=== PATIENT | male | born 1960 | race Caucasian/White ===

== ENCOUNTER 2019-09-17 15:55 | Inpatient (IN) ==
[2019-09-17 16:40] LABS: Basophils # 0.1 K/mcL (0.0-0.2); Basophils % 1.3 %; Eosinophils # 0.3 K/mcL (0.0-0.6); Eosinophils % 4.9 %; Hematocrit 34.9 % (37.5-50.1); Hemoglobin 10.9 g/dL (12.9-16.9); Immature Granulocytes % 0.5 % (0-4); Lymphocytes # 0.6 K/mcL (0.6-4.6); Mean Corpuscular HGB Conc 31.2 g/dL (31.6-35.5); Mean Corpuscular Volume 99.1 fL (83.0-100.0); Mean Platelet Volume 9.2 fL (9.4-12.4); Monocytes # 0.6 K/mcL (0.0-1.3); Neutrophils # 4.7 K/mcL (1.6-8.9); Platelet Count 268 K/mcL (140-400); Red Blood Count 3.52 M/mcL (4.19-5.50); Red Cell Distribution Width 23.6 % (11.5-14.5); Segmented Neutrophils % 74.3 %; White Blood Count 6.3 K/mcL (4.3-11.1)
[2019-09-17 16:49] LABS: Prothrombin Time 22.7 Seconds (9.4-12.1)
[2019-09-17 16:59] LABS: Potassium 3.8 mEq/L (3.5-5.1)
[2019-09-17 17:16] LABS: Anisocytosis 3+ (Not Present)
[2019-09-17 17:17] LABS: Platelet Estimate Normal (Normal)
[2019-09-17] MEDS ORDERED: Naloxone 0.4 MG/ML INJ IVP PRN (17:46)
[2019-09-17] MEDS ORDERED: Ondansetron 4 MG/2 ML VIAL IVP PRN (17:46)
[2019-09-17] MEDS ORDERED: *HR* Dextrose 50 % in Water (Syg) 50 ML SYRINGE IVP PRN (17:58)
[2019-09-17] MEDS ORDERED: D5% in Water 1,000 ML IVC PRN ×2 (17:58→17:59)
[2019-09-17] MEDS ORDERED: Dextrose Gel 15 GM/37.5 ML TUBE PO PRN ×2 (17:58)
[2019-09-17] MEDS: 0.9 % Sodium Chloride 1,000 ML IVC SCH (18:51)
[2019-09-17] MEDS: Insulin LISPRO 300 UNITS/3 ML VIAL SQ SCH (18:51)
[2019-09-17] MEDS ORDERED: Ipratropium/Albuterol Neb 3 ML IH PRN (19:44)
[2019-09-17] MEDS: *HR* Heparin 5,000 UNIT/ML VIAL SQ SCH (21:05)
[2019-09-17] MEDS: Doxycycline 100 MG CAPSULE PO SCH (21:06)
[2019-09-18 05:07] LABS: Basophils # 0.1 K/mcL (0.0-0.2); Basophils % 1.1 %; Eosinophils # 0.4 K/mcL (0.0-0.6); Eosinophils % 5.5 %; Hematocrit 35.4 % (37.5-50.1); Hemoglobin 10.4 g/dL (12.9-16.9); Immature Granulocytes % 0.6 % (0-4); Lymphocytes # 0.6 K/mcL (0.6-4.6); Mean Corpuscular HGB Conc 29.4 g/dL (31.6-35.5); Mean Corpuscular Hemoglobin 30.6 pg (28.0-33.3); Mean Corpuscular Volume 104.1 fL (83.0-100.0); Mean Platelet Volume 9.3 fL (9.4-12.4); Monocytes # 0.6 K/mcL (0.0-1.3); Monocytes % 8.5 %; Neutrophils # 5.3 K/mcL (1.6-8.9); Platelet Count 249 K/mcL (140-400); Red Cell Distribution Width 23.8 % (11.5-14.5); Segmented Neutrophils % 76.3 %
[2019-09-18 05:10] LABS: INR 1.7; Prothrombin Time 19.4 Seconds (9.4-12.1)
[2019-09-18 05:23] LABS: Calcium 8.8 mg/dL (8.6-10.3); Potassium 4.3 mEq/L (3.5-5.1)
[2019-09-18 05:30] LABS: Anisocytosis 1+ (Not Present)
[2019-09-18 05:31] LABS: Platelet Estimate Normal (Normal); Polychromasia 1+ (Not Present)
[2019-09-18] MEDS: *HR* Heparin 5,000 UNIT/ML VIAL SQ SCH ×3 (06:05→23:04)
[2019-09-18] MEDS: Insulin LISPRO 300 UNITS/3 ML VIAL SQ SCH ×3 (07:26→16:53)
[2019-09-18] MEDS ORDERED: Isosorbide MONOnitrate (24 HR) 30 MG TAB.ER.24H PO SCH (09:00)
[2019-09-18] MEDS ORDERED: Aspirin 81 MG TAB.CHEW PO SCH (09:00)
[2019-09-18] MEDS ORDERED: Gabapentin 300 MG CAPSULE PO SCH (09:00)
[2019-09-18] MEDS: Doxycycline 100 MG CAPSULE PO SCH ×2 (09:13→23:05)
[2019-09-18 20:16] LABS: Hepatitis B Surface Antibody 56.36 mIU/mL
[2019-09-18 20:27] LABS: Hepatitis B Surface Antigen Nonreactive (Nonreactive)
[2019-09-18] MEDS ORDERED: Lidocaine 1% 20 ML MDV ONE (20:36)
[2019-09-18] MEDS ORDERED: Lidocaine -MPF 2% 2 ML VIAL ONE (21:00)
[2019-09-18] MEDS ORDERED: Propofol 500 MG/50 ML INFUS..BTL ONE (21:00)
[2019-09-18] MEDS ORDERED: *HR* Propofol 200 MG/20 ML VIAL IVP ONE (21:34)
[2019-09-18] MEDS ORDERED: *HR* PHENYLEPHRINE 1,000 MCG/10 ML SYRINGE IVP ONE (21:51)
[2019-09-18] MEDS: 0.9 % Sodium Chloride 1,000 ML IVC SCH (23:05)
[2019-09-19 02:16] LABS: Basophils # 0.1 K/mcL (0.0-0.2); Basophils % 1.7 %; Eosinophils # 0.4 K/mcL (0.0-0.6); Eosinophils % 7.1 %; Hemoglobin 10.3 g/dL (12.9-16.9); Immature Granulocytes % 0.7 % (0-4); Lymphocytes # 0.4 K/mcL (0.6-4.6); Lymphocytes % 6.3 %; Mean Corpuscular HGB Conc 30.3 g/dL (31.6-35.5); Mean Corpuscular Hemoglobin 31.1 pg (28.0-33.3); Mean Corpuscular Volume 102.7 fL (83.0-100.0); Mean Platelet Volume 9.4 fL (9.4-12.4); Monocytes # 0.4 K/mcL (0.0-1.3); Monocytes % 6.8 %; Neutrophils # 4.7 K/mcL (1.6-8.9); Platelet Count 282 K/mcL (140-400); Red Blood Count 3.31 M/mcL (4.19-5.50); Red Cell Distribution Width 23.9 % (11.5-14.5); Segmented Neutrophils % 77.4 %; White Blood Count 6.1 K/mcL (4.3-11.1)
[2019-09-19 02:18] LABS: INR 1.5
[2019-09-19 02:34] LABS: Calcium 8.1 mg/dL (8.6-10.3); Potassium 4.3 mEq/L (3.5-5.1)
[2019-09-19 02:35] LABS: Hypochromasia Present (Not Present); Platelet Estimate Normal (Normal)
[2019-09-19 02:36] LABS: Anisocytosis 3+ (Not Present); Microcytosis Present (Not Present)
[2019-09-19] MEDS: *HR* Heparin 5,000 UNIT/ML VIAL SQ SCH ×3 (06:30→20:39)
[2019-09-19] MEDS ORDERED: D5% in Water 1,000 ML IVC PRN (07:12)
[2019-09-19] MEDS ORDERED: *HR* Dextrose 50 % in Water (Syg) 50 ML SYRINGE IVP PRN (07:12)
[2019-09-19] MEDS ORDERED: Dextrose Gel 15 GM/37.5 ML TUBE PO PRN ×2 (07:12)
[2019-09-19] MEDS ORDERED: Ondansetron 4 MG/2 ML VIAL IVP PRN (07:12)
[2019-09-19] MEDS ORDERED: Ipratropium/Albuterol Neb 3 ML IH PRN (07:12)
[2019-09-19] MEDS ORDERED: Naloxone 0.4 MG/ML INJ IVP PRN (07:12)
[2019-09-19] MEDS ORDERED: 0.9 % Sodium Chloride 1,000 ML IVC SCH (07:12)
[2019-09-19] MEDS: Insulin LISPRO 300 UNITS/3 ML VIAL SQ SCH ×3 (08:30→17:09)
[2019-09-19] MEDS: Aspirin 81 MG TAB.CHEW PO SCH (08:31)
[2019-09-19] MEDS: Gabapentin 300 MG CAPSULE PO SCH (08:31)
[2019-09-19] MEDS: Isosorbide MONOnitrate (24 HR) 30 MG TAB.ER.24H PO SCH (08:32)
[2019-09-19] MEDS ORDERED: Doxycycline 100 MG CAPSULE PO SCH (09:00)
[2019-09-19] MEDS ORDERED: 0.9 % Sodium Chloride 250 ML IVC PRN (09:24)
[2019-09-19] MEDS ORDERED: 0.9 % Sodium Chloride 1,000 ML PRIME SCH (09:30)
[2019-09-19] MEDS ORDERED: Vancomycin 1 EACH in 0.9 % Sodium Chloride 250 ML IVPB PRN (14:00)
[2019-09-19] MEDS: Piperacillin/Tazobactam 3.375 GM in 0.9 % Sodium Chloride Mini Bag 100 ML IVPB SCH (17:08)
[2019-09-20] MEDS: Piperacillin/Tazobactam 3.375 GM in 0.9 % Sodium Chloride Mini Bag 100 ML IVPB SCH ×2 (06:04→17:36)
[2019-09-20] MEDS: *HR* Heparin 5,000 UNIT/ML VIAL SQ SCH ×3 (06:04→21:22)
[2019-09-20 06:47] LABS: INR 1.4; Prothrombin Time 15.8 Seconds (9.4-12.1)
[2019-09-20] MEDS: Isosorbide MONOnitrate (24 HR) 30 MG TAB.ER.24H PO SCH (07:34)
[2019-09-20] MEDS: Aspirin 81 MG TAB.CHEW PO SCH (07:35)
[2019-09-20] MEDS: Insulin LISPRO 300 UNITS/3 ML VIAL SQ SCH ×3 (07:35→17:37)
[2019-09-20] MEDS: Gabapentin 300 MG CAPSULE PO SCH (07:35)
[2019-09-20] MEDS: Renal Vitamin 1 CAP CAPSULE PO SCH (07:35)
[2019-09-20] MEDS ORDERED: Warfarin perPT PO PRN (18:00)
[2019-09-20] MEDS ORDERED: *HR* Warfarin 5 MG TABLET PO ONE (18:00)
[2019-09-21 05:03] LABS: Hematocrit 33.7 % (37.5-50.1); Hemoglobin 10.1 g/dL (12.9-16.9); Mean Corpuscular Hemoglobin 30.6 pg (28.0-33.3); Mean Corpuscular Volume 102.1 fL (83.0-100.0); Mean Platelet Volume 9.5 fL (9.4-12.4); Platelet Count 253 K/mcL (140-400)
[2019-09-21 05:08] LABS: White Blood Count 9.1 K/mcL (4.3-11.1)
[2019-09-21 05:15] LABS: INR 1.4; Prothrombin Time 15.7 Seconds (9.4-12.1)
[2019-09-21 05:25] LABS: Calcium 8.6 mg/dL (8.6-10.3); Potassium 5.2 mEq/L (3.5-5.1)
[2019-09-21] MEDS: Piperacillin/Tazobactam 3.375 GM in 0.9 % Sodium Chloride Mini Bag 100 ML IVPB SCH ×2 (05:35→16:56)
[2019-09-21] MEDS: *HR* Heparin 5,000 UNIT/ML VIAL SQ SCH ×2 (05:35→13:13)
[2019-09-21] MEDS: Renal Vitamin 1 CAP CAPSULE PO SCH (08:22)
[2019-09-21] MEDS: Isosorbide MONOnitrate (24 HR) 30 MG TAB.ER.24H PO SCH (08:23)
[2019-09-21] MEDS: Aspirin 81 MG TAB.CHEW PO SCH (08:23)
[2019-09-21] MEDS: Gabapentin 300 MG CAPSULE PO SCH (08:23)
[2019-09-21] MEDS: Insulin LISPRO 300 UNITS/3 ML VIAL SQ SCH ×3 (08:43→16:04)
[2019-09-21] MEDS ORDERED: 0.9 % Sodium Chloride 250 ML IVC PRN (08:51)
[2019-09-21] MEDS ORDERED: *HR* Warfarin 5 MG TABLET PO ONE (18:00)
[2019-09-22] MEDS: *HR* Heparin 5,000 UNIT/ML VIAL SQ SCH ×2 (00:32→05:11)
[2019-09-22] MEDS: Piperacillin/Tazobactam 3.375 GM in 0.9 % Sodium Chloride Mini Bag 100 ML IVPB SCH (05:12)
[2019-09-22 05:31] LABS: Hematocrit 31.8 % (37.5-50.1); Hemoglobin 9.3 g/dL (12.9-16.9); Mean Corpuscular HGB Conc 29.2 g/dL (31.6-35.5); Mean Corpuscular Hemoglobin 30.8 pg (28.0-33.3); Mean Corpuscular Volume 105.3 fL (83.0-100.0); Mean Platelet Volume 9.7 fL (9.4-12.4); Platelet Count 245 K/mcL (140-400); Red Blood Count 3.02 M/mcL (4.19-5.50); Red Cell Distribution Width 23.3 % (11.5-14.5); White Blood Count 7.8 K/mcL (4.3-11.1)
[2019-09-22 05:44] LABS: INR 1.4; Prothrombin Time 16.3 Seconds (9.4-12.1)
[2019-09-22 05:47] LABS: Calcium 8.7 mg/dL (8.6-10.3); Potassium 4.4 mEq/L (3.5-5.1)
[2019-09-22] MEDS: Isosorbide MONOnitrate (24 HR) 30 MG TAB.ER.24H PO SCH (08:37)
[2019-09-22] MEDS: Renal Vitamin 1 CAP CAPSULE PO SCH (08:37)
[2019-09-22] MEDS: Insulin LISPRO 300 UNITS/3 ML VIAL SQ SCH ×3 (08:38→16:04)
[2019-09-22] MEDS: Gabapentin 300 MG CAPSULE PO SCH (08:38)
[2019-09-22] MEDS: Aspirin 81 MG TAB.CHEW PO SCH (08:38)
[2019-09-22] MEDS ORDERED: *HR* Heparin 5,000 UNIT/ML VIAL IVP ONE (13:39)
[2019-09-22] MEDS ORDERED: *HR* Heparin 5,000 UNIT/ML VIAL IVP PRN ×2 (13:39)
[2019-09-22 14:45] LABS: Hematocrit 31.2 % (37.5-50.1); Hemoglobin 9.5 g/dL (12.9-16.9); Immature Platelets 2.7 % (1.1-6.1); Mean Corpuscular HGB Conc 30.4 g/dL (31.6-35.5); Mean Corpuscular Hemoglobin 31.3 pg (28.0-33.3); Mean Corpuscular Volume 102.6 fL (83.0-100.0); Mean Platelet Volume 9.6 fL (9.4-12.4); Red Blood Count 3.04 M/mcL (4.19-5.50); Red Cell Distribution Width 23.3 % (11.5-14.5); White Blood Count 8.3 K/mcL (4.3-11.1)
[2019-09-22 14:53] LABS: Heparin anti-factor XA UFH 0.02 IU/mL (0.30-0.70); INR 1.5; Prothrombin Time 17.1 Seconds (9.4-12.1)
[2019-09-22] MEDS: Heparin 25,000 UNIT/250 ML D5W 25,000 UNIT/250 ML IV.SOLN IVC SCH (15:26)
[2019-09-22] MEDS: MetroNIDAZOLE 500 MG/100 ML 500 MG/100 ML BAG IVPB SCH (15:31)
[2019-09-22] MEDS ORDERED: *HR* Warfarin 5 MG TABLET PO ONE (18:00)
[2019-09-23] MEDS: MetroNIDAZOLE 500 MG/100 ML 500 MG/100 ML BAG IVPB SCH ×3 (00:44→15:37)
[2019-09-23 07:22] LABS: Hematocrit 30.3 % (37.5-50.1); Hemoglobin 9.2 g/dL (12.9-16.9); Mean Corpuscular HGB Conc 30.4 g/dL (31.6-35.5); Mean Corpuscular Hemoglobin 30.8 pg (28.0-33.3); Mean Corpuscular Volume 101.3 fL (83.0-100.0); Mean Platelet Volume 9.7 fL (9.4-12.4); Platelet Count 252 K/mcL (140-400); Red Blood Count 2.99 M/mcL (4.19-5.50); Red Cell Distribution Width 22.7 % (11.5-14.5); White Blood Count 7.5 K/mcL (4.3-11.1)
[2019-09-23 07:28] LABS: INR 1.9; Prothrombin Time 21.4 Seconds (9.4-12.1)
[2019-09-23] MEDS ORDERED: Aminoglycoside Consult 1 EACH MC ONE (07:38)
[2019-09-23 07:43] LABS: Calcium 8.6 mg/dL (8.6-10.3); Potassium 4.9 mEq/L (3.5-5.1)
[2019-09-23] MEDS: Isosorbide MONOnitrate (24 HR) 30 MG TAB.ER.24H PO SCH (07:52)
[2019-09-23] MEDS: Aspirin 81 MG TAB.CHEW PO SCH (07:53)
[2019-09-23] MEDS: Renal Vitamin 1 CAP CAPSULE PO SCH (07:53)
[2019-09-23] MEDS: Gabapentin 300 MG CAPSULE PO SCH (07:53)
[2019-09-23] MEDS: Insulin LISPRO 300 UNITS/3 ML VIAL SQ SCH ×3 (07:58→17:07)
[2019-09-23] MEDS ORDERED: DAPTOmycin 500 MG in 0.9 % Sodium Chloride 100 ML IVPB SCH ×2 (12:00→15:00)
[2019-09-23] MEDS: Heparin 25,000 UNIT/250 ML D5W 25,000 UNIT/250 ML IV.SOLN IVC SCH (12:03)
[2019-09-23] MEDS ORDERED: *HR* Warfarin 5 MG TABLET PO ONE (18:00)
[2019-09-23] MEDS ORDERED: Pantoprazole 80 MG in 0.9 % Sodium Chloride 50 ML IVPB ONE (23:28)
[2019-09-24 00:01] LABS: Hematocrit 32.5 % (37.5-50.1); Hemoglobin 10.1 g/dL (12.9-16.9)
[2019-09-24] MEDS: MetroNIDAZOLE 500 MG/100 ML 500 MG/100 ML BAG IVPB SCH ×2 (00:30→08:32)
[2019-09-24 04:23] LABS: Hematocrit 32.4 % (37.5-50.1); Hemoglobin 9.8 g/dL (12.9-16.9); Mean Corpuscular HGB Conc 30.2 g/dL (31.6-35.5); Mean Corpuscular Hemoglobin 30.9 pg (28.0-33.3); Mean Corpuscular Volume 102.2 fL (83.0-100.0); Platelet Count 308 K/mcL (140-400); Red Blood Count 3.17 M/mcL (4.19-5.50); Red Cell Distribution Width 22.5 % (11.5-14.5); White Blood Count 8.7 K/mcL (4.3-11.1)
[2019-09-24 04:27] LABS: INR 2.4; Prothrombin Time 26.9 Seconds (9.4-12.1)
[2019-09-24 04:42] LABS: Calcium 8.6 mg/dL (8.6-10.3); Potassium 5.7 mEq/L (3.5-5.1)
[2019-09-24] MEDS ORDERED: *HR* Heparin 10,000 UNIT/10 ML VIAL IV PRN (07:59)
[2019-09-24] MEDS ORDERED: 0.9 % Sodium Chloride 250 ML IVC PRN (07:59)
[2019-09-24] MEDS ORDERED: 0.9 % Sodium Chloride 1,000 ML PRIME SCH (08:00)
[2019-09-24] MEDS: Renal Vitamin 1 CAP CAPSULE PO SCH (08:18)
[2019-09-24] MEDS: Isosorbide MONOnitrate (24 HR) 30 MG TAB.ER.24H PO SCH (08:19)
[2019-09-24] MEDS: Gabapentin 300 MG CAPSULE PO SCH (08:19)
[2019-09-24] MEDS: Aspirin 81 MG TAB.CHEW PO SCH (08:20)
[2019-09-24] MEDS: Insulin LISPRO 300 UNITS/3 ML VIAL SQ SCH ×3 (08:40→17:21)
[2019-09-24] MEDS: metroNIDAZOLE 500 MG TABLET PO SCH ×2 (15:00→22:53)
[2019-09-24] MEDS: Ampicillin 2 GM in 0.9 % Sodium Chloride Mini Bag 100 ML IVPB SCH ×2 (16:57→21:53)
[2019-09-24] MEDS ORDERED: *HR* Warfarin 2.5 MG TABLET PO ONE (18:00)
[2019-09-25 04:05] LABS: Hematocrit 30.9 % (37.5-50.1); Mean Corpuscular HGB Conc 29.1 g/dL (31.6-35.5); Mean Corpuscular Hemoglobin 30.7 pg (28.0-33.3); Mean Corpuscular Volume 105.5 fL (83.0-100.0); Mean Platelet Volume 9.8 fL (9.4-12.4); Platelet Count 264 K/mcL (140-400); Red Blood Count 2.93 M/mcL (4.19-5.50); Red Cell Distribution Width 23.1 % (11.5-14.5); White Blood Count 7.8 K/mcL (4.3-11.1)
[2019-09-25 04:13] LABS: INR 2.3; Prothrombin Time 26.3 Seconds (9.4-12.1)
[2019-09-25] MEDS: Ampicillin 2 GM in 0.9 % Sodium Chloride Mini Bag 100 ML IVPB SCH ×4 (04:18→17:21)
[2019-09-25 04:27] LABS: Calcium 8.6 mg/dL (8.6-10.3); Potassium 4.8 mEq/L (3.5-5.1)
[2019-09-25] MEDS: Insulin LISPRO 300 UNITS/3 ML VIAL SQ SCH ×3 (08:26→17:18)
[2019-09-25] MEDS: Gabapentin 300 MG CAPSULE PO SCH (08:28)
[2019-09-25] MEDS: Renal Vitamin 1 CAP CAPSULE PO SCH (08:28)
[2019-09-25] MEDS: Aspirin 81 MG TAB.CHEW PO SCH (08:28)
[2019-09-25] MEDS: Isosorbide MONOnitrate (24 HR) 30 MG TAB.ER.24H PO SCH (08:28)
[2019-09-25] MEDS: metroNIDAZOLE 500 MG TABLET PO SCH ×3 (08:28→21:05)
[2019-09-25] MEDS ORDERED: SODIUM CHLORIDE/NAHCO3/KCL/PEG 4,000 ML SOLN.RECON PO ONE (17:00)
[2019-09-25] MEDS ORDERED: *HR* Warfarin 3 MG TABLET PO ONE (18:00)
[2019-09-26 05:24] LABS: Prothrombin Time 34.7 Seconds (9.4-12.1)
[2019-09-26 05:25] LABS: Hematocrit 32.6 % (37.5-50.1); Hemoglobin 9.9 g/dL (12.9-16.9); Mean Corpuscular HGB Conc 30.4 g/dL (31.6-35.5); Mean Corpuscular Hemoglobin 31.2 pg (28.0-33.3); Mean Corpuscular Volume 102.8 fL (83.0-100.0); Mean Platelet Volume 9.6 fL (9.4-12.4); Platelet Count 295 K/mcL (140-400); Red Blood Count 3.17 M/mcL (4.19-5.50); White Blood Count 7.7 K/mcL (4.3-11.1)
[2019-09-26 05:39] LABS: Calcium 8.7 mg/dL (8.6-10.3); Potassium 5.6 mEq/L (3.5-5.1)
[2019-09-26] MEDS: Insulin LISPRO 300 UNITS/3 ML VIAL SQ SCH ×3 (08:19→17:43)
[2019-09-26] MEDS: Gabapentin 300 MG CAPSULE PO SCH (08:30)
[2019-09-26] MEDS: Aspirin 81 MG TAB.CHEW PO SCH (08:30)
[2019-09-26] MEDS: metroNIDAZOLE 500 MG TABLET PO SCH ×3 (08:30→20:56)
[2019-09-26] MEDS: Isosorbide MONOnitrate (24 HR) 30 MG TAB.ER.24H PO SCH (08:30)
[2019-09-26] MEDS: Renal Vitamin 1 CAP CAPSULE PO SCH (08:30)
[2019-09-26] MEDS ORDERED: 0.9 % Sodium Chloride 250 ML IVC PRN ×2 (08:43→08:47)
[2019-09-26] MEDS ORDERED: *HR* Heparin 10,000 UNIT/10 ML VIAL IV PRN (08:47)
[2019-09-26] MEDS ORDERED: 0.9 % Sodium Chloride 1,000 ML PRIME SCH (09:00)
[2019-09-26] MEDS ORDERED: Lidocaine -MPF 2% 2 ML VIAL ONE (12:34)
[2019-09-26] MEDS ORDERED: *HR* Propofol 200 MG/20 ML VIAL IVP ONE (12:36)
[2019-09-26] MEDS: Ampicillin 2 GM in 0.9 % Sodium Chloride Mini Bag 100 ML IVPB SCH (17:42)
[2019-09-26] MEDS ORDERED: *HR* Warfarin 2 MG TABLET PO ONE (18:00)
[2019-09-27 04:51] LABS: INR 3.4; Prothrombin Time 38.4 Seconds (9.4-12.1)
[2019-09-27 07:42] LABS: Eosinophils # 0.3 K/mcL (0.0-0.6); Hematocrit 31.8 % (37.5-50.1); Hemoglobin 9.7 g/dL (12.9-16.9); Mean Corpuscular HGB Conc 30.5 g/dL (31.6-35.5); Mean Corpuscular Hemoglobin 31.6 pg (28.0-33.3); Mean Corpuscular Volume 103.6 fL (83.0-100.0); Mean Platelet Volume 9.4 fL (9.4-12.4); Nucleated Red Blood Cells 0.3 /100 WBC (0); Platelet Count 280 K/mcL (140-400); Red Blood Count 3.07 M/mcL (4.19-5.50); Red Cell Distribution Width 23.5 % (11.5-14.5); White Blood Count 6.9 K/mcL (4.3-11.1)
[2019-09-27 07:53] LABS: Potassium 5.2 mEq/L (3.5-5.1)
[2019-09-27 08:20] LABS: Anisocytosis 3+ (Not Present); Monocytes # 0.4 K/mcL (0.0-1.3); Neutrophils # 5.3 K/mcL (1.6-8.9); Polychromasia 1+ (Not Present)
[2019-09-27 08:21] LABS: Macrocytosis Present (Not Present); Platelet Estimate Normal (Normal)
[2019-09-27] MEDS: Insulin LISPRO 300 UNITS/3 ML VIAL SQ SCH ×3 (09:55→16:58)
[2019-09-27] MEDS: Renal Vitamin 1 CAP CAPSULE PO SCH (09:58)
[2019-09-27] MEDS: Gabapentin 300 MG CAPSULE PO SCH (10:30)
[2019-09-27] MEDS: Isosorbide MONOnitrate (24 HR) 30 MG TAB.ER.24H PO SCH (10:30)
[2019-09-27] MEDS: metroNIDAZOLE 500 MG TABLET PO SCH ×3 (10:30→20:49)
[2019-09-27] MEDS: Aspirin 81 MG TAB.CHEW PO SCH (10:30)
[2019-09-27] MEDS ORDERED: 0.9 % Sodium Chloride 500 ML IVC SCH (14:00)
[2019-09-27] MEDS ORDERED: Lidocaine -MPF 2% 2 ML VIAL ONE (14:32)
[2019-09-27] MEDS ORDERED: *HR* Etomidate 40 MG/20 ML VIAL IVP ONE (14:32)
[2019-09-27] MEDS: Ampicillin 2 GM in 0.9 % Sodium Chloride Mini Bag 100 ML IVPB SCH (17:10)
[2019-09-27] MEDS ORDERED: *HR* LORazepam 2 MG/ML VIAL IVP ONE (21:43)
[2019-09-27 22:07] LABS: ABG Base Excess -8 mEq/L (-2 to 3); ABG HCO3 17 mEq/L (21-27); ABG Oxygen Saturation 99 % (95-98); ABG PCO2 29 mmHg (35-45); ABG PH 7.36 pH Units (7.32-7.45); ABG PO2 144 mmHg (85-104); ABG TCO2 18 mEq/L (20-26)
[2019-09-28] MEDS: Insulin LISPRO 300 UNITS/3 ML VIAL SQ SCH ×3 (07:45→16:38)
[2019-09-28] MEDS: Aspirin 81 MG TAB.CHEW PO SCH (07:45)
[2019-09-28] MEDS: Gabapentin 300 MG CAPSULE PO SCH (07:45)
[2019-09-28] MEDS: Renal Vitamin 1 CAP CAPSULE PO SCH (07:45)
[2019-09-28] MEDS: Isosorbide MONOnitrate (24 HR) 30 MG TAB.ER.24H PO SCH (07:45)
[2019-09-28] MEDS: metroNIDAZOLE 500 MG TABLET PO SCH ×3 (07:45→20:46)
[2019-09-28 10:41] LABS: Basophils # 0.1 K/mcL (0.0-0.2); Basophils % 0.5 %; Eosinophils % 0.2 %; Hematocrit 30.4 % (37.5-50.1); Hemoglobin 8.9 g/dL (12.9-16.9); Immature Granulocytes % 0.3 % (0-4); Lymphocytes # 0.4 K/mcL (0.6-4.6); Lymphocytes % 3.4 %; Mean Corpuscular HGB Conc 29.3 g/dL (31.6-35.5); Mean Corpuscular Hemoglobin 31.6 pg (28.0-33.3); Mean Corpuscular Volume 107.8 fL (83.0-100.0); Mean Platelet Volume 9.4 fL (9.4-12.4); Monocytes # 0.7 K/mcL (0.0-1.3); Monocytes % 6.7 %; Neutrophils # 9.7 K/mcL (1.6-8.9); Nucleated Red Blood Cells 0.3 /100 WBC (0); Platelet Count 253 K/mcL (140-400); Red Blood Count 2.82 M/mcL (4.19-5.50); Red Cell Distribution Width 23.8 % (11.5-14.5); Segmented Neutrophils % 88.9 %
[2019-09-28 10:43] LABS: White Blood Count 10.9 K/mcL (4.3-11.1)
[2019-09-28 10:47] LABS: Prothrombin Time 45.2 Seconds (9.4-12.1)
[2019-09-28 10:58] LABS: Calcium 8.5 mg/dL (8.6-10.3); Magnesium 2.2 mg/dL (1.6-2.6); Potassium 6.3 mEq/L (3.5-5.1)
[2019-09-28 11:09] LABS: Platelet Estimate Normal (Normal)
[2019-09-28 11:10] LABS: Anisocytosis 2+ (Not Present); Macrocytosis Present (Not Present)
[2019-09-28] MEDS ORDERED: 0.9 % Sodium Chloride 250 ML IVC PRN (15:24)
[2019-09-28] MEDS: Ampicillin 2 GM in 0.9 % Sodium Chloride Mini Bag 100 ML IVPB SCH (19:59)
[2019-09-28] MEDS ORDERED: *HR* LORazepam 2 MG/ML VIAL IVP ONE ×2 (20:06)
[2019-09-28] MEDS ORDERED: Haloperidol Lactate 5 MG/ML VIAL IVP ONE (21:13)
[2019-09-28] MEDS ORDERED: *HR* Promethazine 25 MG/ML VIAL IVP ONE (21:14)
[2019-09-29 04:37] LABS: Basophils % 0.6 %; Eosinophils # 0.3 K/mcL (0.0-0.6); Eosinophils % 3.5 %; Hematocrit 29.2 % (37.5-50.1); Hemoglobin 8.6 g/dL (12.9-16.9); Immature Granulocytes % 0.3 % (0-4); Lymphocytes # 0.4 K/mcL (0.6-4.6); Lymphocytes % 6.2 %; Mean Corpuscular HGB Conc 29.5 g/dL (31.6-35.5); Mean Corpuscular Hemoglobin 31.6 pg (28.0-33.3); Mean Corpuscular Volume 107.4 fL (83.0-100.0); Mean Platelet Volume 9.5 fL (9.4-12.4); Monocytes # 0.6 K/mcL (0.0-1.3); Monocytes % 7.8 %; Neutrophils # 5.8 K/mcL (1.6-8.9); Platelet Count 223 K/mcL (140-400); Red Blood Count 2.72 M/mcL (4.19-5.50); Red Cell Distribution Width 23.5 % (11.5-14.5); Segmented Neutrophils % 81.6 %; White Blood Count 7.1 K/mcL (4.3-11.1)
[2019-09-29 04:54] LABS: INR 3.4
[2019-09-29 05:05] LABS: Calcium 8.6 mg/dL (8.6-10.3); Magnesium 2.1 mg/dL (1.6-2.6); Phosphorous 4.1 mg/dL (2.7-4.5); Potassium 4.1 mEq/L (3.5-5.1)
[2019-09-29 05:37] LABS: Anisocytosis 3+ (Not Present); Hypochromasia Present (Not Present); Polychromasia 1+ (Not Present)
[2019-09-29] MEDS: Insulin LISPRO 300 UNITS/3 ML VIAL SQ SCH ×3 (08:59→17:36)
[2019-09-29] MEDS: Gabapentin 300 MG CAPSULE PO SCH (11:32)
[2019-09-29] MEDS: Aspirin 81 MG TAB.CHEW PO SCH (11:32)
[2019-09-29] MEDS: Isosorbide MONOnitrate (24 HR) 30 MG TAB.ER.24H PO SCH (11:32)
[2019-09-29] MEDS: metroNIDAZOLE 500 MG TABLET PO SCH ×3 (11:32→23:14)
[2019-09-29] MEDS: Renal Vitamin 1 CAP CAPSULE PO SCH (11:32)
[2019-09-29] MEDS: Ampicillin 2 GM in 0.9 % Sodium Chloride Mini Bag 100 ML IVPB SCH (17:30)
[2019-09-30 04:38] LABS: INR 2.3; Prothrombin Time 26.1 Seconds (9.4-12.1)
[2019-09-30] MEDS ORDERED: Haloperidol Lactate 5 MG/ML VIAL IVP ONE (05:15)
[2019-09-30] MEDS: Insulin LISPRO 300 UNITS/3 ML VIAL SQ SCH ×3 (09:28→17:02)
[2019-09-30] MEDS: Gabapentin 300 MG CAPSULE PO SCH (09:29)
[2019-09-30] MEDS: Renal Vitamin 1 CAP CAPSULE PO SCH (09:29)
[2019-09-30] MEDS: Aspirin 81 MG TAB.CHEW PO SCH (09:29)
[2019-09-30] MEDS: metroNIDAZOLE 500 MG TABLET PO SCH ×3 (09:29→20:15)
[2019-09-30] MEDS: Isosorbide MONOnitrate (24 HR) 30 MG TAB.ER.24H PO SCH (09:29)
[2019-09-30 13:33] LABS: Basophils # 0.1 K/mcL (0.0-0.2); Basophils % 0.9 %; Eosinophils # 0.4 K/mcL (0.0-0.6); Eosinophils % 4.8 %; Hemoglobin 9.3 g/dL (12.9-16.9); Immature Granulocytes % 0.4 % (0-4); Lymphocytes # 0.5 K/mcL (0.6-4.6); Lymphocytes % 6.7 %; Mean Corpuscular Hemoglobin 31.8 pg (28.0-33.3); Mean Corpuscular Volume 106.2 fL (83.0-100.0); Mean Platelet Volume 9.4 fL (9.4-12.4); Monocytes # 0.7 K/mcL (0.0-1.3); Monocytes % 8.8 %; Nucleated Red Blood Cells 0.3 /100 WBC (0); Platelet Count 261 K/mcL (140-400); Red Blood Count 2.92 M/mcL (4.19-5.50); Red Cell Distribution Width 23.7 % (11.5-14.5); Segmented Neutrophils % 78.4 %
[2019-09-30 13:35] LABS: Neutrophils # 6.3 K/mcL (1.6-8.9)
[2019-09-30 13:53] LABS: Calcium 8.7 mg/dL (8.6-10.3); Magnesium 2.3 mg/dL (1.6-2.6); Phosphorous 4.4 mg/dL (2.7-4.5); Potassium 4.7 mEq/L (3.5-5.1)
[2019-09-30 14:00] LABS: Anisocytosis 2+ (Not Present); Hypochromasia Present (Not Present); Platelet Estimate Normal (Normal); Polychromasia 1+ (Not Present)
[2019-09-30] MEDS: Ampicillin 2 GM in 0.9 % Sodium Chloride Mini Bag 100 ML IVPB SCH (16:56)
[2019-09-30] MEDS ORDERED: *HR* Warfarin 2 MG TABLET PO ONE (18:00)
[2019-10-01] MEDS ORDERED: Haloperidol Lactate 5 MG/ML VIAL IVP ONE (02:05)
[2019-10-01] MEDS ORDERED: *HR* Promethazine 25 MG/ML VIAL IVP ONE (02:05)
[2019-10-01 03:55] LABS: Prothrombin Time 23.2 Seconds (9.4-12.1)
[2019-10-01] MEDS ORDERED: 0.9 % Sodium Chloride 250 ML IVC PRN (05:00)
[2019-10-01] MEDS ORDERED: 0.9 % Sodium Chloride 1,000 ML PRIME SCH (05:00)
[2019-10-01] MEDS: Isosorbide MONOnitrate (24 HR) 30 MG TAB.ER.24H PO SCH (09:17)
[2019-10-01] MEDS: Renal Vitamin 1 CAP CAPSULE PO SCH (09:17)
[2019-10-01] MEDS: metroNIDAZOLE 500 MG TABLET PO SCH (09:17)
[2019-10-01] MEDS: Aspirin 81 MG TAB.CHEW PO SCH (09:17)
[2019-10-01] MEDS: Insulin LISPRO 300 UNITS/3 ML VIAL SQ SCH (09:18)
[2019-10-01] MEDS: Gabapentin 300 MG CAPSULE PO SCH (09:18)
[2019-10-01 11:15] LABS: Eosinophils # 0.3 K/mcL (0.0-0.6); Hematocrit 34.3 % (37.5-50.1); Mean Corpuscular HGB Conc 29.2 g/dL (31.6-35.5); Mean Corpuscular Hemoglobin 31.8 pg (28.0-33.3); Mean Corpuscular Volume 109.2 fL (83.0-100.0); Mean Platelet Volume 9.2 fL (9.4-12.4); Platelet Count 261 K/mcL (140-400); Red Blood Count 3.14 M/mcL (4.19-5.50)
[2019-10-01 11:35] LABS: Calcium 8.9 mg/dL (8.6-10.3); Magnesium 2.4 mg/dL (1.6-2.6); Phosphorous 4.7 mg/dL (2.7-4.5)
[2019-10-01 12:03] LABS: Anisocytosis 3+ (Not Present); Basophils # 0.2 K/mcL (0.0-0.2); Monocytes # 0.3 K/mcL (0.0-1.3); Neutrophils # 6.2 K/mcL (1.6-8.9)
[2019-10-01 12:04] LABS: Hypochromasia Present (Not Present); Poikilocytosis 1+ (Not Present); Polychromasia 1+ (Not Present); Reactive Lymphocytes Present (Not Present)
[2019-10-01] MEDS ORDERED: *HR* Warfarin 2 MG TABLET PO ONE (18:00)
[2019-10-01 18:40] VITALS: BP 121/69
== END 2019-10-01 16:11 | DRG 500 ==
LOC: 2ANU 15:55 → EMEROOARM 15:55 → 2ANU 18:29 → SUATTDRO 09-18 16:30 → 2ANU 09-30 13:47
PROVIDERS: ADMIT Student in an Organized Health Care Education/Training Program; ATTEND Internal Medicine
PROC: ENDOCCB (2019-09-27 14:30)

== ENCOUNTER 2019-10-13 09:13 | Inpatient (IN) ==
[2019-10-13] MEDS ORDERED: Ondansetron 4 MG/2 ML VIAL IVP PRN (11:57)
[2019-10-13] MEDS ORDERED: Naloxone 0.4 MG/ML INJ IVP PRN (11:57)
[2019-10-13] MEDS ORDERED: *HR* Dextrose 50 % in Water (Syg) 50 ML SYRINGE IVP PRN (13:26)
[2019-10-13] MEDS ORDERED: Dextrose Gel 15 GM/37.5 ML TUBE PO PRN ×2 (13:26)
[2019-10-13] MEDS ORDERED: D5% in Water 1,000 ML IVC PRN (13:26)
[2019-10-13 14:39] LABS: INR 1.7; Prothrombin Time 19.2 Seconds (9.4-12.1)
[2019-10-13] MEDS: metroNIDAZOLE 500 MG TABLET PO SCH ×2 (15:06→22:32)
[2019-10-13] MEDS: Ampicillin 2 GM in 0.9 % Sodium Chloride Mini Bag 100 ML IVPB SCH (15:06)
[2019-10-13] MEDS: Insulin LISPRO 300 UNITS/3 ML VIAL SQ SCH ×2 (16:08→22:33)
[2019-10-13] MEDS ORDERED: Warfarin perPT PO PRN (18:00)
[2019-10-13] MEDS ORDERED: *HR* Warfarin 5 MG TABLET PO ONE (18:00)
[2019-10-14 06:36] LABS: Basophils # 0.1 K/mcL (0.0-0.2); Basophils % 1.5 %; Eosinophils # 0.4 K/mcL (0.0-0.6); Eosinophils % 5.7 %; Hemoglobin 10.6 g/dL (12.9-16.9); Immature Granulocytes % 0.3 % (0-4); Lymphocytes # 0.7 K/mcL (0.6-4.6); Lymphocytes % 10.7 %; Mean Corpuscular HGB Conc 30.3 g/dL (31.6-35.5); Mean Corpuscular Hemoglobin 32.4 pg (28.0-33.3); Monocytes # 0.7 K/mcL (0.0-1.3); Monocytes % 10.5 %; Neutrophils # 4.6 K/mcL (1.6-8.9); Platelet Count 234 K/mcL (140-400); Red Blood Count 3.27 M/mcL (4.19-5.50); Red Cell Distribution Width 22.5 % (11.5-14.5); Segmented Neutrophils % 71.3 %; White Blood Count 6.5 K/mcL (4.3-11.1)
[2019-10-14 06:41] LABS: INR 1.7; Prothrombin Time 19.8 Seconds (9.4-12.1)
[2019-10-14 07:00] LABS: Calcium 8.7 mg/dL (8.6-10.3); Magnesium 2.6 mg/dL (1.6-2.6)
[2019-10-14] MEDS: Insulin LISPRO 300 UNITS/3 ML VIAL SQ SCH ×4 (08:10→21:31)
[2019-10-14] MEDS: metroNIDAZOLE 500 MG TABLET PO SCH ×3 (10:23→21:11)
[2019-10-14] MEDS ORDERED: Nitroglycerin 0.4 MG TAB.SUBL SL PRN (10:37)
[2019-10-14] MEDS ORDERED: Ondansetron ODT 4 MG TAB.RAPDIS PO PRN (10:37)
[2019-10-14] MEDS ORDERED: Ipratropium/Albuterol Neb 3 ML IH PRN (10:37)
[2019-10-14] MEDS: (Sucroferric Oxyhydroxide [Velphoro] 1,000 MG) PO SCH ×2 (13:30→15:35)
[2019-10-14] MEDS: Ampicillin 2 GM in 0.9 % Sodium Chloride Mini Bag 100 ML IVPB SCH (13:34)
[2019-10-14] MEDS ORDERED: *HR* Warfarin 5 MG TABLET PO ONE (18:00)
[2019-10-15 04:55] LABS: Hematocrit 36.6 % (37.5-50.1); Hemoglobin 10.8 g/dL (12.9-16.9); Mean Corpuscular HGB Conc 29.5 g/dL (31.6-35.5); Mean Corpuscular Hemoglobin 32.4 pg (28.0-33.3); Mean Corpuscular Volume 109.9 fL (83.0-100.0); Mean Platelet Volume 10.2 fL (9.4-12.4); Platelet Count 232 K/mcL (140-400); Red Blood Count 3.33 M/mcL (4.19-5.50); Red Cell Distribution Width 22.5 % (11.5-14.5)
[2019-10-15 05:18] LABS: Calcium 8.7 mg/dL (8.6-10.3); Potassium 5.6 mEq/L (3.5-5.1)
[2019-10-15] MEDS ORDERED: 0.9 % Sodium Chloride 1,000 ML ONE (07:19)
[2019-10-15] MEDS ORDERED: *HR* Heparin 10,000 UNIT/10 ML VIAL IV PRN (07:58)
[2019-10-15] MEDS ORDERED: 0.9 % Sodium Chloride 250 ML IVC PRN (07:58)
[2019-10-15] MEDS ORDERED: 0.9 % Sodium Chloride 1,000 ML PRIME SCH (08:00)
[2019-10-15] MEDS: Renal Vitamin 1 CAP CAPSULE PO SCH (08:32)
[2019-10-15] MEDS: Isosorbide MONOnitrate (24 HR) 30 MG TAB.ER.24H PO SCH (08:32)
[2019-10-15] MEDS: metroNIDAZOLE 500 MG TABLET PO SCH ×3 (08:32→21:12)
[2019-10-15] MEDS: Cholecalciferol (D-3) 1,000 UNIT (25MCG) TABLET PO SCH (08:32)
[2019-10-15] MEDS: Insulin LISPRO 300 UNITS/3 ML VIAL SQ SCH ×4 (08:33→21:09)
[2019-10-15] MEDS: Gabapentin 300 MG CAPSULE PO SCH (08:33)
[2019-10-15] MEDS: (Sucroferric Oxyhydroxide [Velphoro] 1,000 MG) PO SCH (08:33)
[2019-10-15 13:18] LABS: INR 2.4; Prothrombin Time 27.2 Seconds (9.4-12.1)
[2019-10-15] MEDS: Ampicillin 2 GM in 0.9 % Sodium Chloride Mini Bag 100 ML IVPB SCH (17:09)
[2019-10-15] MEDS ORDERED: *HR* Warfarin 3 MG TABLET PO ONE (18:00)
[2019-10-15] MEDS ORDERED: *HR* Warfarin 2.5 MG TABLET PO ONE (18:00)
[2019-10-16 04:41] LABS: Hematocrit 35.4 % (37.5-50.1); Hemoglobin 10.5 g/dL (12.9-16.9); Mean Corpuscular HGB Conc 29.7 g/dL (31.6-35.5); Mean Corpuscular Hemoglobin 32.6 pg (28.0-33.3); Mean Corpuscular Volume 109.9 fL (83.0-100.0); Mean Platelet Volume 9.9 fL (9.4-12.4); Platelet Count 223 K/mcL (140-400); Red Blood Count 3.22 M/mcL (4.19-5.50); Red Cell Distribution Width 22.3 % (11.5-14.5); White Blood Count 6.2 K/mcL (4.3-11.1)
[2019-10-16 04:50] LABS: INR 2.3; Prothrombin Time 26.4 Seconds (9.4-12.1)
[2019-10-16 05:03] LABS: Calcium 8.6 mg/dL (8.6-10.3); Potassium 4.5 mEq/L (3.5-5.1)
[2019-10-16] MEDS ORDERED: E-Z-HD (BARIUM SULF) SUSPENSION PO ONE (08:41)
[2019-10-16] MEDS ORDERED: E-Z-PAQUE (BARIUM SULF) SUSP 1 BOTTLE PO ONE (08:41)
[2019-10-16] MEDS: Insulin LISPRO 300 UNITS/3 ML VIAL SQ SCH ×4 (09:52→21:42)
[2019-10-16] MEDS: Gabapentin 300 MG CAPSULE PO SCH (09:53)
[2019-10-16] MEDS: metroNIDAZOLE 500 MG TABLET PO SCH ×3 (09:53→22:46)
[2019-10-16] MEDS: Isosorbide MONOnitrate (24 HR) 30 MG TAB.ER.24H PO SCH (09:53)
[2019-10-16] MEDS: Cholecalciferol (D-3) 1,000 UNIT (25MCG) TABLET PO SCH (09:54)
[2019-10-16] MEDS: Renal Vitamin 1 CAP CAPSULE PO SCH (09:54)
[2019-10-16] MEDS: Ampicillin 2 GM in 0.9 % Sodium Chloride Mini Bag 100 ML IVPB SCH (16:13)
[2019-10-16] MEDS ORDERED: *HR* Warfarin 3 MG TABLET PO ONE (18:00)
[2019-10-16 23:17] LABS: Basophils # 0.1 K/mcL (0.0-0.2); Eosinophils # 0.5 K/mcL (0.0-0.6); Eosinophils % 8.1 %; Hematocrit 34.2 % (37.5-50.1); Hemoglobin 10.2 g/dL (12.9-16.9); Immature Granulocytes % 0.2 % (0-4); Lymphocytes # 0.5 K/mcL (0.6-4.6); Mean Corpuscular HGB Conc 29.8 g/dL (31.6-35.5); Mean Corpuscular Hemoglobin 32.5 pg (28.0-33.3); Mean Corpuscular Volume 108.9 fL (83.0-100.0); Mean Platelet Volume 9.4 fL (9.4-12.4); Monocytes # 0.6 K/mcL (0.0-1.3); Monocytes % 10.8 %; Neutrophils # 4.2 K/mcL (1.6-8.9); Platelet Count 226 K/mcL (140-400); Red Blood Count 3.14 M/mcL (4.19-5.50); Red Cell Distribution Width 22.2 % (11.5-14.5); Segmented Neutrophils % 70.9 %; White Blood Count 5.9 K/mcL (4.3-11.1)
[2019-10-16 23:37] LABS: Albumin 3.2 g/dL (3.5-5.7); Albumin/Globulin Ratio 1.1 (1.1-2.2); Bilirubin,Total 0.9 mg/dL (0.3-1.0); Calcium 8.5 mg/dL (8.6-10.3); Potassium 4.4 mEq/L (3.5-5.1); Total Protein 6.2 g/dL (6.4-8.9)
[2019-10-17 04:47] LABS: Hematocrit 35.2 % (37.5-50.1); Hemoglobin 10.4 g/dL (12.9-16.9); Mean Corpuscular HGB Conc 29.5 g/dL (31.6-35.5); Mean Corpuscular Hemoglobin 32.5 pg (28.0-33.3); Mean Platelet Volume 9.8 fL (9.4-12.4); Platelet Count 229 K/mcL (140-400)
[2019-10-17 05:00] LABS: INR 2.7; Prothrombin Time 31.2 Seconds (9.4-12.1)
[2019-10-17 05:07] LABS: Potassium 4.8 mEq/L (3.5-5.1)
[2019-10-17] MEDS ORDERED: *HR* Heparin 10,000 UNIT/10 ML VIAL IV PRN (07:27)
[2019-10-17] MEDS ORDERED: 0.9 % Sodium Chloride 250 ML IVC PRN (07:27)
[2019-10-17] MEDS ORDERED: 0.9 % Sodium Chloride 1,000 ML PRIME SCH (07:30)
[2019-10-17] MEDS: Isosorbide MONOnitrate (24 HR) 30 MG TAB.ER.24H PO SCH (08:50)
[2019-10-17] MEDS: Gabapentin 300 MG CAPSULE PO SCH (08:50)
[2019-10-17] MEDS: Renal Vitamin 1 CAP CAPSULE PO SCH (08:50)
[2019-10-17] MEDS: metroNIDAZOLE 500 MG TABLET PO SCH ×3 (08:50→22:05)
[2019-10-17] MEDS: Cholecalciferol (D-3) 1,000 UNIT (25MCG) TABLET PO SCH (08:50)
[2019-10-17] MEDS: Insulin LISPRO 300 UNITS/3 ML VIAL SQ SCH ×4 (08:51→20:25)
[2019-10-17] MEDS: Ampicillin 2 GM in 0.9 % Sodium Chloride Mini Bag 100 ML IVPB SCH (16:51)
[2019-10-17] MEDS ORDERED: *HR* Warfarin 2 MG TABLET PO ONE (18:00)
[2019-10-18 04:14] LABS: Hematocrit 35.4 % (37.5-50.1); Hemoglobin 10.3 g/dL (12.9-16.9); Mean Corpuscular HGB Conc 29.1 g/dL (31.6-35.5); Mean Corpuscular Hemoglobin 32.7 pg (28.0-33.3); Mean Corpuscular Volume 112.4 fL (83.0-100.0); Mean Platelet Volume 9.5 fL (9.4-12.4); Platelet Count 220 K/mcL (140-400); Red Blood Count 3.15 M/mcL (4.19-5.50); Red Cell Distribution Width 21.8 % (11.5-14.5)
[2019-10-18 04:18] LABS: INR 3.1; Prothrombin Time 35.3 Seconds (9.4-12.1)
[2019-10-18 04:38] LABS: Calcium 8.5 mg/dL (8.6-10.3); Potassium 4.9 mEq/L (3.5-5.1)
[2019-10-18] MEDS: Cholecalciferol (D-3) 1,000 UNIT (25MCG) TABLET PO SCH (08:27)
[2019-10-18] MEDS: Isosorbide MONOnitrate (24 HR) 30 MG TAB.ER.24H PO SCH (08:27)
[2019-10-18] MEDS: Gabapentin 300 MG CAPSULE PO SCH (08:27)
[2019-10-18] MEDS: metroNIDAZOLE 500 MG TABLET PO SCH ×3 (08:28→20:54)
[2019-10-18] MEDS: Renal Vitamin 1 CAP CAPSULE PO SCH (08:28)
[2019-10-18] MEDS: Insulin LISPRO 300 UNITS/3 ML VIAL SQ SCH ×4 (08:41→20:47)
[2019-10-18] MEDS: Ampicillin 2 GM in 0.9 % Sodium Chloride Mini Bag 100 ML IVPB SCH (15:11)
[2019-10-19 04:34] LABS: INR 2.9; Prothrombin Time 32.9 Seconds (9.4-12.1)
[2019-10-19 05:01] LABS: Calcium 8.8 mg/dL (8.6-10.3)
[2019-10-19] MEDS ORDERED: 0.9 % Sodium Chloride 1,000 ML ONE (07:04)
[2019-10-19] MEDS ORDERED: 0.9 % Sodium Chloride 250 ML IVC PRN (07:29)
[2019-10-19] MEDS ORDERED: *HR* Heparin 10,000 UNIT/10 ML VIAL IV PRN (07:29)
[2019-10-19] MEDS ORDERED: 0.9 % Sodium Chloride 1,000 ML PRIME SCH (07:30)
[2019-10-19] MEDS: Insulin LISPRO 300 UNITS/3 ML VIAL SQ SCH ×4 (08:17→21:06)
[2019-10-19] MEDS: Renal Vitamin 1 CAP CAPSULE PO SCH (08:18)
[2019-10-19] MEDS: Cholecalciferol (D-3) 1,000 UNIT (25MCG) TABLET PO SCH (08:18)
[2019-10-19] MEDS: metroNIDAZOLE 500 MG TABLET PO SCH ×3 (08:18→21:06)
[2019-10-19] MEDS: Gabapentin 300 MG CAPSULE PO SCH (08:18)
[2019-10-19] MEDS: Isosorbide MONOnitrate (24 HR) 30 MG TAB.ER.24H PO SCH (13:14)
[2019-10-19] MEDS: Ampicillin 2 GM in 0.9 % Sodium Chloride Mini Bag 100 ML IVPB SCH (15:41)
[2019-10-19] MEDS ORDERED: *HR* Warfarin 2 MG TABLET PO ONE (18:00)
[2019-10-20 05:35] LABS: INR 2.8; Prothrombin Time 31.4 Seconds (9.4-12.1)
[2019-10-20 05:51] LABS: Calcium 8.8 mg/dL (8.6-10.3); Potassium 5.1 mEq/L (3.5-5.1)
[2019-10-20] MEDS: metroNIDAZOLE 500 MG TABLET PO SCH ×2 (08:45→14:03)
[2019-10-20] MEDS: Renal Vitamin 1 CAP CAPSULE PO SCH (08:46)
[2019-10-20] MEDS: Gabapentin 300 MG CAPSULE PO SCH (08:46)
[2019-10-20] MEDS: Isosorbide MONOnitrate (24 HR) 30 MG TAB.ER.24H PO SCH (08:48)
[2019-10-20] MEDS: Cholecalciferol (D-3) 1,000 UNIT (25MCG) TABLET PO SCH (08:48)
[2019-10-20] MEDS: Insulin LISPRO 300 UNITS/3 ML VIAL SQ SCH ×2 (08:53→12:49)
[2019-10-20 13:03] VITALS: BP 94/55
[2019-10-20] MEDS: Ampicillin 2 GM in 0.9 % Sodium Chloride Mini Bag 100 ML IVPB SCH (14:03)
[2019-10-20] MEDS ORDERED: *HR* Warfarin 2 MG TABLET PO ONE (18:00)
== END 2019-10-20 15:05 | DRG 637 ==
LOC: 2ANU → SUATTDRO 11:09
PROVIDERS: ADMIT Internal Medicine; ATTEND Internal Medicine

== ENCOUNTER 2019-10-23 10:06 | Observation (INO) ==
[2019-10-23] MEDS ORDERED: *HR* Dextrose 50 % in Water (Syg) 50 ML SYRINGE IVP ONE (10:36)
[2019-10-23] MEDS ORDERED: Insulin Human Regular 10 UNIT in 0.9 % Sodium Chloride 10 ML IV ONE (10:36)
[2019-10-23] MEDS ORDERED: Albuterol 2.5 MG/3 ML NEBULIZER IH ONE (10:37)
[2019-10-23] MEDS ORDERED: *HR* Dextrose 50 % in Water (Syg) 50 ML SYRINGE ONE (11:36)
[2019-10-23 11:40] LABS: Basophils # 0.1 K/mcL (0.0-0.2); Basophils % 0.9 %; Eosinophils # 0.2 K/mcL (0.0-0.6); Eosinophils % 3.9 %; Hematocrit 34.4 % (37.5-50.1); Hemoglobin 10.7 g/dL (12.9-16.9); Immature Granulocytes % 0.4 % (0-4); Lymphocytes # 0.5 K/mcL (0.6-4.6); Lymphocytes % 8.8 %; Mean Corpuscular HGB Conc 31.1 g/dL (31.6-35.5); Mean Platelet Volume 10.1 fL (9.4-12.4); Monocytes # 0.6 K/mcL (0.0-1.3); Monocytes % 11.5 %; Platelet Count 234 K/mcL (140-400); Red Blood Count 3.34 M/mcL (4.19-5.50); Red Cell Distribution Width 19.5 % (11.5-14.5); Segmented Neutrophils % 74.5 %; White Blood Count 5.4 K/mcL (4.3-11.1)
[2019-10-23 12:03] LABS: Albumin 3.3 g/dL (3.5-5.7); Bilirubin,Total 0.7 mg/dL (0.3-1.0); Globulin 3.3 g/dL (2.4-3.5); Magnesium 3.3 mg/dL (1.6-2.6); Potassium 6.7 mEq/L (3.5-5.1); Total Protein 6.6 g/dL (6.4-8.9); Troponin I 0.05 ng/mL (< 0.04)
[2019-10-23 12:29] LABS: INR 3.2; Prothrombin Time 36.2 Seconds (9.4-12.1)
[2019-10-23 12:32] LABS: Activated Partial Thrombo Time 53.9 Seconds (26.0-36.0)
[2019-10-23 13:02] LABS: ABG Base Excess -3 mEq/L (-2 to 3); ABG HCO3 24 mEq/L (21-27); ABG Oxygen Saturation 99 % (95-98); ABG PCO2 53 mmHg (35-45); ABG PH 7.27 pH Units (7.32-7.45); ABG PO2 156 mmHg (85-104); ABG TCO2 26 mEq/L (20-26)
[2019-10-23] MEDS ORDERED: Aspirin 325 MG TABLET PO ONE (13:18)
[2019-10-23] MEDS ORDERED: 0.9 % Sodium Chloride 1,000 ML ONE (13:55)
[2019-10-23] MEDS ORDERED: 0.9 % Sodium Chloride 500 ML IVC ONE (14:00)
[2019-10-23] MEDS ORDERED: 0.9 % Sodium Chloride 250 ML IVC PRN (15:13)
[2019-10-23] MEDS ORDERED: Albumin 25% 25gram/100mL 25 GM/100 ML IV.SOLN IVPB PRN (15:13)
[2019-10-23] MEDS ORDERED: 0.9 % Sodium Chloride 1,000 ML PRIME SCH (15:15)
[2019-10-23] MEDS ORDERED: Naloxone 0.4 MG/ML INJ IVP PRN (16:37)
[2019-10-23] MEDS ORDERED: Dextrose Gel 15 GM/37.5 ML TUBE PO PRN ×2 (17:47)
[2019-10-23] MEDS ORDERED: D5% in Water 1,000 ML IVC PRN (17:47)
[2019-10-23] MEDS ORDERED: *HR* Dextrose 50 % in Water (Syg) 50 ML SYRINGE IVP PRN (17:47)
[2019-10-23] MEDS ORDERED: Ampicillin 2 GM in 0.9 % Sodium Chloride Mini Bag 100 ML IVPB SCH (18:00)
[2019-10-23] MEDS ORDERED: Warfarin perPT PO PRN (18:00)
[2019-10-23] MEDS ORDERED: Insulin LISPRO 300 UNITS/3 ML VIAL SQ SCH (21:00)
[2019-10-23] MEDS: metroNIDAZOLE 500 MG TABLET PO SCH (21:12)
[2019-10-24 03:12] LABS: Basophils # 0.1 K/mcL (0.0-0.2); Eosinophils # 0.3 K/mcL (0.0-0.6); Hematocrit 34.3 % (37.5-50.1); Hemoglobin 10.3 g/dL (12.9-16.9); Immature Granulocytes % 0.2 % (0-4); Lymphocytes # 0.4 K/mcL (0.6-4.6); Lymphocytes % 7.9 %; Mean Corpuscular Hemoglobin 32.3 pg (28.0-33.3); Mean Corpuscular Volume 107.5 fL (83.0-100.0); Monocytes # 0.7 K/mcL (0.0-1.3); Monocytes % 12.7 %; Neutrophils # 3.7 K/mcL (1.6-8.9); Platelet Count 216 K/mcL (140-400); Red Blood Count 3.19 M/mcL (4.19-5.50); Red Cell Distribution Width 19.6 % (11.5-14.5); Segmented Neutrophils % 72.2 %; White Blood Count 5.2 K/mcL (4.3-11.1)
[2019-10-24 03:18] LABS: INR 3.5; Prothrombin Time 39.6 Seconds (9.4-12.1)
[2019-10-24 03:29] LABS: Potassium 5.6 mEq/L (3.5-5.1)
[2019-10-24] MEDS ORDERED: 0.9 % Sodium Chloride 250 ML IVC PRN (07:30)
[2019-10-24] MEDS: Insulin LISPRO 300 UNITS/3 ML VIAL SQ SCH ×2 (08:06→11:30)
[2019-10-24] MEDS: metroNIDAZOLE 500 MG TABLET PO SCH ×2 (08:06→16:09)
[2019-10-24] MEDS ORDERED: Isosorbide MONOnitrate (24 HR) 30 MG TAB.ER.24H PO SCH (09:00)
[2019-10-24] MEDS ORDERED: Aspirin 325 MG TABLET PO SCH (09:00)
[2019-10-24] MEDS ORDERED: Warfarin perPT PO PRN (12:15)
[2019-10-24] MEDS ORDERED: Nitroglycerin 0.4 MG TAB.SUBL SL PRN (13:30)
[2019-10-24 15:25] VITALS: BP 126/82
[2019-10-25] MEDS ORDERED: Gabapentin 300 MG CAPSULE PO SCH (09:00)
[2019-10-25] MEDS ORDERED: Renal Vitamin 1 CAP CAPSULE PO SCH (09:00)
== END 2019-10-24 17:21 ==
LOC: EMEROOARM 10:06 → 2ANU 10:06 → SUATTDRO 16:43 → 2ANU 17:23
PROVIDERS: ADMIT Internal Medicine; ATTEND Internal Medicine

== ENCOUNTER 2019-11-24 13:14 | Inpatient (IN) ==
[2019-11-24] MEDS ORDERED: Piperacillin/Tazobactam 3.375 GM in 0.9 % Sodium Chloride Mini Bag 100 ML IVPB ONE (14:39)
[2019-11-24 14:56] LABS: Basophils # 0.1 K/mcL (0.0-0.2); Basophils % 0.6 %; Eosinophils # 0.3 K/mcL (0.0-0.6); Eosinophils % 2.5 %; Hematocrit 36.6 % (37.5-50.1); Hemoglobin 11.2 g/dL (12.9-16.9); Immature Granulocytes % 0.4 % (0-4); Lymphocytes # 0.4 K/mcL (0.6-4.6); Lymphocytes % 4.4 %; Mean Corpuscular HGB Conc 30.6 g/dL (31.6-35.5); Mean Corpuscular Hemoglobin 31.3 pg (28.0-33.3); Mean Corpuscular Volume 102.2 fL (83.0-100.0); Monocytes # 0.4 K/mcL (0.0-1.3); Monocytes % 3.6 %; Neutrophils # 8.8 K/mcL (1.6-8.9); Platelet Count 214 K/mcL (140-400); Red Blood Count 3.58 M/mcL (4.19-5.50); Red Cell Distribution Width 17.1 % (11.5-14.5); Segmented Neutrophils % 88.5 %
[2019-11-24 15:00] LABS: INR 1.9; Prothrombin Time 21.4 Seconds (9.4-12.1)
[2019-11-24 15:25] LABS: Albumin/Globulin Ratio 1.1 (1.1-2.2); Bilirubin,Direct 0.2 mg/dL (0.0-0.2); Bilirubin,Indirect 0.5 mg/dL (0.0-1.0); Bilirubin,Total 0.7 mg/dL (0.3-1.0); Calcium 9.2 mg/dL (8.6-10.3); Globulin 3.7 g/dL (2.4-3.5); Potassium 4.4 mEq/L (3.5-5.1); Total Protein 7.7 g/dL (6.4-8.9); Troponin I 0.07 ng/mL (< 0.04)
[2019-11-24] MEDS ORDERED: Naloxone 0.4 MG/ML INJ IVP PRN (15:42)
[2019-11-24] MEDS ORDERED: Ondansetron 4 MG/2 ML VIAL IVP PRN (15:42)
[2019-11-24] MEDS ORDERED: Nitroglycerin 0.4 MG TAB.SUBL SL PRN (15:44)
[2019-11-24] MEDS ORDERED: Dextrose Gel 15 GM/37.5 ML TUBE PO PRN ×2 (15:46)
[2019-11-24] MEDS ORDERED: D5% in Water 1,000 ML IVC PRN (15:46)
[2019-11-24] MEDS ORDERED: *HR* Dextrose 50 % in Water (Syg) 50 ML SYRINGE IVP PRN (15:46)
[2019-11-24 16:29] LABS: ABG Base Excess 2 mEq/L (-2 to 3); ABG HCO3 26 mEq/L (21-27); ABG Oxygen Saturation 80 % (95-98); ABG PCO2 40 mmHg (35-45); ABG PH 7.43 pH Units (7.32-7.45); ABG PO2 43 mmHg (85-104); ABG TCO2 28 mEq/L (20-26); Blood Gas Pressure Support 16 cm H2O
[2019-11-24 16:39] LABS: ABG Base Excess 2 mEq/L (-2 to 3); ABG HCO3 28 mEq/L (21-27); ABG Oxygen Saturation 99 % (95-98); ABG PCO2 45 mmHg (35-45); ABG PO2 147 mmHg (85-104); ABG TCO2 29 mEq/L (20-26); Blood Gas Pressure Support 16 cm H2O
[2019-11-24] MEDS ORDERED: Acetaminophen 325 MG TABLET PO PRN (16:46)
[2019-11-24] MEDS ORDERED: Furosemide 20 MG/2 ML VIAL IVP ONE (16:52)
[2019-11-24] MEDS ORDERED: 0.9 % Sodium Chloride 250 ML IVC PRN (17:52)
[2019-11-24] MEDS ORDERED: *HR* Warfarin 3 MG TABLET PO ONE (18:00)
[2019-11-24] MEDS ORDERED: 0.9 % Sodium Chloride 1,000 ML PRIME SCH (18:00)
[2019-11-24] MEDS ORDERED: Warfarin perPT PO PRN (18:00)
[2019-11-24] MEDS: Ipratropium/Albuterol Neb 3 ML IH SCH ×2 (18:06→21:27)
[2019-11-24 20:02] LABS: ABG Base Excess 3 mEq/L (-2 to 3); ABG HCO3 28 mEq/L (21-27); ABG Oxygen Saturation 95 % (95-98); ABG PCO2 48 mmHg (35-45); ABG PH 7.38 pH Units (7.32-7.45); ABG PO2 78 mmHg (85-104); ABG TCO2 30 mEq/L (20-26)
[2019-11-24 20:31] LABS: Basophils # 0.1 K/mcL (0.0-0.2); Basophils % 0.5 %; Eosinophils # 0.1 K/mcL (0.0-0.6); Eosinophils % 1.1 %; Hematocrit 31.6 % (37.5-50.1); Hemoglobin 9.7 g/dL (12.9-16.9); Immature Granulocytes % 0.4 % (0-4); Lymphocytes # 0.5 K/mcL (0.6-4.6); Lymphocytes % 5.6 %; Mean Corpuscular HGB Conc 30.7 g/dL (31.6-35.5); Mean Corpuscular Hemoglobin 31.7 pg (28.0-33.3); Mean Corpuscular Volume 103.3 fL (83.0-100.0); Mean Platelet Volume 9.7 fL (9.4-12.4); Monocytes # 0.7 K/mcL (0.0-1.3); Monocytes % 7.5 %; Neutrophils # 8.1 K/mcL (1.6-8.9); Platelet Count 158 K/mcL (140-400); Red Blood Count 3.06 M/mcL (4.19-5.50); Segmented Neutrophils % 84.9 %; White Blood Count 9.6 K/mcL (4.3-11.1)
[2019-11-24 20:42] LABS: Activated Partial Thrombo Time 35.5 Seconds (26.0-36.0)
[2019-11-24 20:54] LABS: Albumin 3.5 g/dL (3.5-5.7); Albumin/Globulin Ratio 1.2 (1.1-2.2); Bilirubin,Total 0.5 mg/dL (0.3-1.0); Calcium 8.7 mg/dL (8.6-10.3); Potassium 3.9 mEq/L (3.5-5.1); Total Protein 6.5 g/dL (6.4-8.9)
[2019-11-24] MEDS: Insulin LISPRO 300 UNITS/3 ML VIAL SQ SCH (22:03)
[2019-11-24] MEDS ORDERED: Albumin 25% 12.5gm/50mL 12.5 GM/50 ML IV.SOLN IVPB ONE (22:13)
[2019-11-24] MEDS: Albumin 25% 25gram/100mL 25 GM/100 ML IV.SOLN IVPB ONE ×2 (22:30→22:56)
[2019-11-24] MEDS: Piperacillin/Tazobactam 3.375 GM in 0.9 % Sodium Chloride Mini Bag 100 ML IVPB SCH (22:34)
[2019-11-24 23:50] LABS: Adenovirus Not Detected (Not Detect); Bordetella Pertussis Not Detected (Not Detect); Chlamydophila pneumoniae Not Detected (Not Detect); Coronavirus 229E Not Detected (Not Detect); Coronavirus HKU1 Not Detected (Not Detect); Coronavirus NL63 Not Detected (Not Detect); Coronavirus OC43 Not Detected (Not Detect); Human Metapneumovirus Not Detected (Not Detect); Human Rhinovirus/Enterovirus Not Detected (Not Detect); Influenza A Subtype 2009 H1 Not Detected (Not Detect); Influenza B Not Detected (Not Detect); Mycoplasma pneumoniae Not Detected (Not Detect); Parainfluenza Virus 1 Not Detected (Not Detect); Parainfluenza Virus 2 Not Detected (Not Detect); Parainfluenza Virus 3 Not Detected (Not Detect); Parainfluenza Virus 4 Not Detected (Not Detect); Respiratory Syncytial Virus Not Detected (Not Detect)
[2019-11-25] MEDS: Ipratropium/Albuterol Neb 3 ML IH SCH ×7 (00:04→23:33)
[2019-11-25] MEDS: Insulin LISPRO 300 UNITS/3 ML VIAL SQ SCH ×4 (00:16→17:39)
[2019-11-25 03:24] LABS: Basophils # 0.1 K/mcL (0.0-0.2); Basophils % 0.6 %; Eosinophils # 0.1 K/mcL (0.0-0.6); Hematocrit 32.4 % (37.5-50.1); Hemoglobin 9.9 g/dL (12.9-16.9); Immature Granulocytes % 0.4 % (0-4); Lymphocytes # 0.6 K/mcL (0.6-4.6); Lymphocytes % 6.7 %; Mean Corpuscular HGB Conc 30.6 g/dL (31.6-35.5); Mean Corpuscular Hemoglobin 31.8 pg (28.0-33.3); Mean Corpuscular Volume 104.2 fL (83.0-100.0); Mean Platelet Volume 10.1 fL (9.4-12.4); Monocytes # 0.5 K/mcL (0.0-1.3); Monocytes % 6.2 %; Platelet Count 148 K/mcL (140-400); Red Blood Count 3.11 M/mcL (4.19-5.50); Red Cell Distribution Width 17.3 % (11.5-14.5); Segmented Neutrophils % 85.1 %; White Blood Count 8.3 K/mcL (4.3-11.1)
[2019-11-25 03:28] LABS: INR 1.8; Prothrombin Time 20.1 Seconds (9.4-12.1)
[2019-11-25 03:43] LABS: Calcium 9.3 mg/dL (8.6-10.3)
[2019-11-25] MEDS ORDERED: *HR* Heparin 5,000 UNIT/ML VIAL IVP PRN ×3 (04:17→15:20)
[2019-11-25] MEDS ORDERED: Aspirin 325 MG TABLET PO ONE (04:22)
[2019-11-25] MEDS ORDERED: Heparin 25,000 UNIT/250 ML D5W 25,000 UNIT/250 ML IV.SOLN IVC SCH (04:30)
[2019-11-25] MEDS ORDERED: Gabapentin 300 MG CAPSULE PO SCH (09:00)
[2019-11-25] MEDS ORDERED: Aspirin 325 MG TABLET PO SCH (09:00)
[2019-11-25] MEDS: Piperacillin/Tazobactam 3.375 GM in 0.9 % Sodium Chloride Mini Bag 100 ML IVPB SCH (09:38)
[2019-11-25 09:50] LABS: ABG Base Excess 3 mEq/L (-2 to 3); ABG HCO3 28 mEq/L (21-27); ABG Oxygen Saturation 86 % (95-98); ABG PCO2 48 mmHg (35-45); ABG PH 7.38 pH Units (7.32-7.45); ABG PO2 53 mmHg (85-104); ABG TCO2 30 mEq/L (20-26)
[2019-11-25] MEDS ORDERED: Ondansetron 4 MG/2 ML VIAL IVP PRN (13:56)
[2019-11-25] MEDS ORDERED: *HR* Dextrose 50 % in Water (Syg) 50 ML SYRINGE IVP PRN (13:56)
[2019-11-25] MEDS ORDERED: Naloxone 0.4 MG/ML INJ IVP PRN (13:56)
[2019-11-25] MEDS ORDERED: D5% in Water 1,000 ML IVC PRN (13:56)
[2019-11-25] MEDS ORDERED: 0.9 % Sodium Chloride 1,000 ML PRIME SCH (13:56)
[2019-11-25] MEDS ORDERED: Acetaminophen 325 MG TABLET PO PRN (13:56)
[2019-11-25] MEDS ORDERED: 0.9 % Sodium Chloride 250 ML IVC PRN (13:56)
[2019-11-25] MEDS ORDERED: Nitroglycerin 0.4 MG TAB.SUBL SL PRN (13:56)
[2019-11-25] MEDS ORDERED: Dextrose Gel 15 GM/37.5 ML TUBE PO PRN ×2 (13:56)
[2019-11-25] MEDS: Heparin 25,000 UNIT/250 ML D5W 25,000 UNIT/250 ML IV.SOLN IVC SCH (16:53)
[2019-11-25] MEDS: Menthol 9.1 MG LOZENGE PO PRN (18:18)
[2019-11-25] MEDS ORDERED: Piperacillin/Tazobactam 3.375 GM in 0.9 % Sodium Chloride Mini Bag 100 ML IVPB SCH (21:00)
[2019-11-26] MEDS: Insulin LISPRO 300 UNITS/3 ML VIAL SQ SCH ×5 (00:10→20:45)
[2019-11-26] MEDS: Heparin 25,000 UNIT/250 ML D5W 25,000 UNIT/250 ML IV.SOLN IVC SCH ×2 (03:20→21:48)
[2019-11-26] MEDS: Ipratropium/Albuterol Neb 3 ML IH SCH ×6 (04:57→23:44)
[2019-11-26 06:06] LABS: Basophils # 0.1 K/mcL (0.0-0.2); Basophils % 0.9 %; Eosinophils # 0.4 K/mcL (0.0-0.6); Eosinophils % 6.5 %; Hematocrit 32.1 % (37.5-50.1); Hemoglobin 9.7 g/dL (12.9-16.9); Immature Granulocytes % 0.2 % (0-4); Lymphocytes # 0.5 K/mcL (0.6-4.6); Lymphocytes % 8.1 %; Mean Corpuscular HGB Conc 30.2 g/dL (31.6-35.5); Mean Corpuscular Hemoglobin 31.7 pg (28.0-33.3); Mean Corpuscular Volume 104.9 fL (83.0-100.0); Mean Platelet Volume 9.8 fL (9.4-12.4); Monocytes # 0.6 K/mcL (0.0-1.3); Monocytes % 8.6 %; Neutrophils # 5.1 K/mcL (1.6-8.9); Platelet Count 156 K/mcL (140-400); Red Blood Count 3.06 M/mcL (4.19-5.50); Red Cell Distribution Width 17.2 % (11.5-14.5); Segmented Neutrophils % 75.7 %; White Blood Count 6.7 K/mcL (4.3-11.1)
[2019-11-26 06:11] LABS: INR 1.9; Prothrombin Time 21.2 Seconds (9.4-12.1)
[2019-11-26 06:44] LABS: Calcium 9.2 mg/dL (8.6-10.3); Magnesium 2.4 mg/dL (1.6-2.6); Phosphorous 4.6 mg/dL (2.7-4.5); Potassium 4.1 mEq/L (3.5-5.1)
[2019-11-26] MEDS ORDERED: *HR* Heparin 10,000 UNIT/10 ML VIAL ONE (07:46)
[2019-11-26] MEDS ORDERED: Heparin 1,000 UNITS/500 mL 500 ML ONE (07:46)
[2019-11-26] MEDS ORDERED: 0.9 % Sodium Chloride 1,000 ML ONE (07:46)
[2019-11-26] MEDS ORDERED: Nitroglycerin 1,000 MCG/10 ML VIAL IV ONE (07:46)
[2019-11-26] MEDS ORDERED: ISOVUE-370 200 ML INFUS..BTL ONE (07:46)
[2019-11-26] MEDS ORDERED: Verapamil 5 MG/2 ML VIAL ONE (07:48)
[2019-11-26] MEDS: Aspirin 325 MG TABLET PO SCH (10:23)
[2019-11-26] MEDS: Piperacillin/Tazobactam 3.375 GM in 0.9 % Sodium Chloride Mini Bag 100 ML IVPB SCH ×2 (10:23→17:37)
[2019-11-26] MEDS: Menthol 9.1 MG LOZENGE PO PRN (21:49)
[2019-11-27] MEDS: Menthol 9.1 MG LOZENGE PO PRN ×2 (00:30→21:24)
[2019-11-27] MEDS: Ipratropium/Albuterol Neb 3 ML IH SCH ×6 (03:56→23:47)
[2019-11-27 04:41] LABS: Basophils # 0.1 K/mcL (0.0-0.2); Basophils % 0.9 %; Eosinophils # 0.5 K/mcL (0.0-0.6); Eosinophils % 6.3 %; Hematocrit 33.2 % (37.5-50.1); Immature Granulocytes % 0.5 % (0-4); Lymphocytes # 0.7 K/mcL (0.6-4.6); Mean Corpuscular HGB Conc 30.1 g/dL (31.6-35.5); Mean Corpuscular Hemoglobin 31.2 pg (28.0-33.3); Mean Corpuscular Volume 103.4 fL (83.0-100.0); Mean Platelet Volume 10.3 fL (9.4-12.4); Monocytes # 0.7 K/mcL (0.0-1.3); Neutrophils # 6.5 K/mcL (1.6-8.9); Platelet Count 187 K/mcL (140-400); Red Blood Count 3.21 M/mcL (4.19-5.50); Red Cell Distribution Width 17.2 % (11.5-14.5); Segmented Neutrophils % 76.3 %; White Blood Count 8.5 K/mcL (4.3-11.1)
[2019-11-27 04:51] LABS: INR 1.7; Prothrombin Time 19.5 Seconds (9.4-12.1)
[2019-11-27 04:59] LABS: Calcium 9.5 mg/dL (8.6-10.3)
[2019-11-27] MEDS: Piperacillin/Tazobactam 3.375 GM in 0.9 % Sodium Chloride Mini Bag 100 ML IVPB SCH ×2 (05:55→17:40)
[2019-11-27] MEDS ORDERED: 0.9 % Sodium Chloride 250 ML IVC PRN (07:42)
[2019-11-27] MEDS: Insulin LISPRO 300 UNITS/3 ML VIAL SQ SCH ×5 (09:58→21:36)
[2019-11-27] MEDS: Aspirin 325 MG TABLET PO SCH (10:11)
[2019-11-27] MEDS: Metoprolol XL (24 HR) Succ 25 MG TAB.ER.24H PO SCH (10:16)
[2019-11-27] MEDS: Heparin 25,000 UNIT/250 ML D5W 25,000 UNIT/250 ML IV.SOLN IVC SCH (12:20)
[2019-11-28] MEDS: Heparin 25,000 UNIT/250 ML D5W 25,000 UNIT/250 ML IV.SOLN IVC SCH ×2 (02:59→17:54)
[2019-11-28] MEDS: Ipratropium/Albuterol Neb 3 ML IH SCH ×6 (03:52→19:50)
[2019-11-28] MEDS: Piperacillin/Tazobactam 3.375 GM in 0.9 % Sodium Chloride Mini Bag 100 ML IVPB SCH ×2 (05:13→17:53)
[2019-11-28 07:13] LABS: Hematocrit 32.6 % (37.5-50.1); Hemoglobin 9.7 g/dL (12.9-16.9); Mean Corpuscular HGB Conc 29.8 g/dL (31.6-35.5); Mean Corpuscular Hemoglobin 31.7 pg (28.0-33.3); Mean Corpuscular Volume 106.5 fL (83.0-100.0); Mean Platelet Volume 10.1 fL (9.4-12.4); Platelet Count 186 K/mcL (140-400); Red Blood Count 3.06 M/mcL (4.19-5.50); Red Cell Distribution Width 17.3 % (11.5-14.5); White Blood Count 8.3 K/mcL (4.3-11.1)
[2019-11-28 07:16] LABS: INR 1.8; Prothrombin Time 20.5 Seconds (9.4-12.1)
[2019-11-28 07:46] LABS: Calcium 9.5 mg/dL (8.6-10.3); Potassium 4.2 mEq/L (3.5-5.1)
[2019-11-28] MEDS: Insulin LISPRO 300 UNITS/3 ML VIAL SQ SCH ×4 (07:47→21:53)
[2019-11-28] MEDS: Aspirin 325 MG TABLET PO SCH (07:54)
[2019-11-28] MEDS: Metoprolol XL (24 HR) Succ 25 MG TAB.ER.24H PO SCH (07:54)
[2019-11-28 14:59] LABS: Hematocrit 32.6 % (37.5-50.1); Hemoglobin 10.1 g/dL (12.9-16.9)
[2019-11-29] MEDS: Ipratropium/Albuterol Neb 3 ML IH SCH ×7 (03:51→23:01)
[2019-11-29 06:10] LABS: Basophils # 0.1 K/mcL (0.0-0.2); Eosinophils # 0.5 K/mcL (0.0-0.6); Eosinophils % 6.4 %; Hematocrit 33.9 % (37.5-50.1); Hemoglobin 10.3 g/dL (12.9-16.9); INR 2.1; Immature Granulocytes % 0.6 % (0-4); Lymphocytes # 0.6 K/mcL (0.6-4.6); Lymphocytes % 7.4 %; Mean Corpuscular HGB Conc 30.4 g/dL (31.6-35.5); Mean Corpuscular Hemoglobin 31.4 pg (28.0-33.3); Mean Corpuscular Volume 103.4 fL (83.0-100.0); Mean Platelet Volume 10.2 fL (9.4-12.4); Monocytes # 0.8 K/mcL (0.0-1.3); Monocytes % 9.8 %; Neutrophils # 6.3 K/mcL (1.6-8.9); Nucleated Red Blood Cells 0.5 /100 WBC (0); Platelet Count 216 K/mcL (140-400); Prothrombin Time 24.1 Seconds (9.4-12.1); Red Blood Count 3.28 M/mcL (4.19-5.50); Red Cell Distribution Width 17.2 % (11.5-14.5); Segmented Neutrophils % 74.8 %; White Blood Count 8.4 K/mcL (4.3-11.1)
[2019-11-29 06:26] LABS: Calcium 9.6 mg/dL (8.6-10.3); Potassium 4.7 mEq/L (3.5-5.1)
[2019-11-29] MEDS: Piperacillin/Tazobactam 3.375 GM in 0.9 % Sodium Chloride Mini Bag 100 ML IVPB SCH ×2 (06:29→20:39)
[2019-11-29] MEDS ORDERED: 0.9 % Sodium Chloride 250 ML IVC PRN (08:11)
[2019-11-29] MEDS: Insulin LISPRO 300 UNITS/3 ML VIAL SQ SCH ×4 (08:15→20:37)
[2019-11-29] MEDS: Aspirin 325 MG TABLET PO SCH (08:29)
[2019-11-29] MEDS: Metoprolol XL (24 HR) Succ 25 MG TAB.ER.24H PO SCH (08:29)
[2019-11-29] MEDS: Heparin 25,000 UNIT/250 ML D5W 25,000 UNIT/250 ML IV.SOLN IVC SCH (08:41)
[2019-11-29] MEDS ORDERED: *HR* Etomidate 40 MG/20 ML VIAL IVP ONE (14:43)
[2019-11-29] MEDS ORDERED: *HR* Propofol 200 MG/20 ML VIAL IVP ONE (14:43)
[2019-11-29] MEDS ORDERED: *HR* PHENYLEPHRINE 1,000 MCG/10 ML SYRINGE IVP ONE (14:45)
[2019-11-29] MEDS ORDERED: Lidocaine -MPF 2% 2 ML VIAL ONE (15:05)
[2019-11-29] MEDS: *HR* Heparin 5,000 UNIT/ML VIAL SQ SCH (17:29)
[2019-11-30] MEDS: Ipratropium/Albuterol Neb 3 ML IH SCH ×5 (03:38→20:16)
[2019-11-30 05:54] LABS: Basophils # 0.1 K/mcL (0.0-0.2); Eosinophils # 0.5 K/mcL (0.0-0.6); Eosinophils % 6.9 %; Hematocrit 30.2 % (37.5-50.1); Hemoglobin 9.5 g/dL (12.9-16.9); Immature Granulocytes % 0.8 % (0-4); Lymphocytes # 0.6 K/mcL (0.6-4.6); Lymphocytes % 7.9 %; Mean Corpuscular HGB Conc 31.5 g/dL (31.6-35.5); Mean Corpuscular Volume 101.7 fL (83.0-100.0); Mean Platelet Volume 9.3 fL (9.4-12.4); Monocytes # 0.7 K/mcL (0.0-1.3); Monocytes % 8.7 %; Neutrophils # 5.9 K/mcL (1.6-8.9); Platelet Count 223 K/mcL (140-400); Red Blood Count 2.97 M/mcL (4.19-5.50); Red Cell Distribution Width 17.6 % (11.5-14.5); Segmented Neutrophils % 74.7 %; White Blood Count 7.8 K/mcL (4.3-11.1)
[2019-11-30 05:59] LABS: INR 1.8; Prothrombin Time 20.9 Seconds (9.4-12.1)
[2019-11-30 06:21] LABS: Calcium 9.3 mg/dL (8.6-10.3); Potassium 3.5 mEq/L (3.5-5.1)
[2019-11-30] MEDS: Piperacillin/Tazobactam 3.375 GM in 0.9 % Sodium Chloride Mini Bag 100 ML IVPB SCH ×2 (06:28→16:50)
[2019-11-30] MEDS: *HR* Heparin 5,000 UNIT/ML VIAL SQ SCH ×2 (06:28→16:50)
[2019-11-30] MEDS: Insulin LISPRO 300 UNITS/3 ML VIAL SQ SCH ×4 (07:21→23:59)
[2019-11-30] MEDS ORDERED: Pantoprazole 40 MG VIAL IVP SCH (08:30)
[2019-11-30] MEDS: Aspirin 325 MG TABLET PO SCH (09:11)
[2019-11-30] MEDS: Metoprolol XL (24 HR) Succ 25 MG TAB.ER.24H PO SCH (09:11)
[2019-11-30 10:05] LABS: Albumin 3.7 g/dL (3.5-5.7); Albumin/Globulin Ratio 1.3 (1.1-2.2); Bilirubin,Direct 0.2 mg/dL (0.0-0.2); Bilirubin,Indirect 0.4 mg/dL (0.0-1.0); Bilirubin,Total 0.6 mg/dL (0.3-1.0); Globulin 2.9 g/dL (2.4-3.5); Total Protein 6.6 g/dL (6.4-8.9)
[2019-11-30] MEDS ORDERED: *HR* Warfarin 3 MG TABLET PO ONE (18:00)
[2019-11-30] MEDS ORDERED: Warfarin perPT PO PRN (18:00)
[2019-12-01] MEDS: Ipratropium/Albuterol Neb 3 ML IH SCH ×4 (00:11→11:43)
[2019-12-01] MEDS: *HR* Heparin 5,000 UNIT/ML VIAL SQ SCH (06:26)
[2019-12-01] MEDS ORDERED: 0.9 % Sodium Chloride 250 ML IVC PRN (06:57)
[2019-12-01 07:00] LABS: Basophils # 0.1 K/mcL (0.0-0.2); Basophils % 0.7 %; Eosinophils # 0.5 K/mcL (0.0-0.6); Eosinophils % 6.9 %; Hematocrit 30.7 % (37.5-50.1); Hemoglobin 9.3 g/dL (12.9-16.9); Immature Granulocytes % 0.7 % (0-4); Lymphocytes # 0.6 K/mcL (0.6-4.6); Mean Corpuscular HGB Conc 30.3 g/dL (31.6-35.5); Mean Corpuscular Hemoglobin 31.2 pg (28.0-33.3); Mean Platelet Volume 9.8 fL (9.4-12.4); Monocytes # 0.7 K/mcL (0.0-1.3); Monocytes % 9.5 %; Neutrophils # 5.4 K/mcL (1.6-8.9); Platelet Count 226 K/mcL (140-400); Red Blood Count 2.98 M/mcL (4.19-5.50); Red Cell Distribution Width 17.9 % (11.5-14.5); Segmented Neutrophils % 74.2 %; White Blood Count 7.3 K/mcL (4.3-11.1)
[2019-12-01 07:04] LABS: INR 1.5; Prothrombin Time 17.6 Seconds (9.4-12.1)
[2019-12-01 07:21] LABS: Calcium 9.2 mg/dL (8.6-10.3); Potassium 3.7 mEq/L (3.5-5.1)
[2019-12-01] MEDS: Insulin LISPRO 300 UNITS/3 ML VIAL SQ SCH ×2 (07:48→13:45)
[2019-12-01] MEDS: Metoprolol XL (24 HR) Succ 25 MG TAB.ER.24H PO SCH (07:48)
[2019-12-01 14:53] VITALS: BP 93/44
[2019-12-01] MEDS ORDERED: *HR* Warfarin 3 MG TABLET PO ONE (18:00)
== END 2019-12-01 16:10 | DRG 871 ==
LOC: EMEROOARM 13:14 → SUATTDRO 16:44 → 2NNU 16:44 → ICNU 20:35 → 2ANU 11-25 17:30
PROVIDERS: ADMIT Student in an Organized Health Care Education/Training Program; ATTEND Internal Medicine

== ENCOUNTER 2019-12-25 06:29 | Inpatient (IN) ==
[2019-12-25] MEDS ORDERED: 0.9 % Sodium Chloride 250 ML IVC ONE (06:46)
[2019-12-25 07:04] LABS: Basophils % 0.2 %; Eosinophils % 0.1 %; Hematocrit 32.4 % (37.5-50.1); Hemoglobin 10.2 g/dL (12.9-16.9); Immature Granulocytes % 0.6 % (0-4); Lymphocytes # 0.6 K/mcL (0.6-4.6); Lymphocytes % 2.6 %; Mean Corpuscular HGB Conc 31.5 g/dL (31.6-35.5); Mean Corpuscular Hemoglobin 30.8 pg (28.0-33.3); Mean Corpuscular Volume 97.9 fL (83.0-100.0); Mean Platelet Volume 9.6 fL (9.4-12.4); Monocytes # 1.2 K/mcL (0.0-1.3); Monocytes % 5.9 %; Neutrophils # 19.1 K/mcL (1.6-8.9); Platelet Count 306 K/mcL (140-400); Red Blood Count 3.31 M/mcL (4.19-5.50); Segmented Neutrophils % 90.6 %; White Blood Count 21.1 K/mcL (4.3-11.1)
[2019-12-25] MEDS ORDERED: cefTRIAXone 1,000 MG in Water for inj. (sterile) 10 ML IVP ONE (07:20)
[2019-12-25 07:34] LABS: Albumin 2.9 g/dL (3.5-5.7); Albumin/Globulin Ratio 0.9 (1.1-2.2); Bilirubin,Total 0.8 mg/dL (0.3-1.0); Calcium 8.9 mg/dL (8.6-10.3); Globulin 3.3 g/dL (2.4-3.5); Potassium 4.5 mEq/L (3.5-5.1); Total Protein 6.2 g/dL (6.4-8.9)
[2019-12-25 07:35] LABS: Troponin I 2.49 ng/mL (< 0.04)
[2019-12-25] MEDS ORDERED: Naloxone 0.4 MG/ML INJ IVP PRN (07:51)
[2019-12-25] MEDS ORDERED: 0.9 % Sodium Chloride 1,000 ML IVC ONE (07:51)
[2019-12-25] MEDS ORDERED: Ondansetron 4 MG/2 ML VIAL IVP PRN (07:51)
[2019-12-25] MEDS ORDERED: Acetaminophen 325 MG TABLET PO PRN (07:51)
[2019-12-25] MEDS ORDERED: Piperacillin/Tazobactam 3.375 GM in 0.9 % Sodium Chloride Mini Bag 100 ML IVPB SCH (08:00)
[2019-12-25] MEDS ORDERED: Aminoglycoside Consult 1 EACH MC ONE (08:17)
[2019-12-25] MEDS: 0.9 % Sodium Chloride 1,000 ML IVC SCH ×2 (08:52→21:22)
[2019-12-25 08:55] LABS: INR 3.2; Prothrombin Time 36.6 Seconds (9.4-12.1)
[2019-12-25] MEDS ORDERED: *HR* Dextrose 50 % in Water (Syg) 50 ML SYRINGE IVP PRN (09:39)
[2019-12-25] MEDS ORDERED: D5% in Water 1,000 ML IVC PRN (09:39)
[2019-12-25] MEDS ORDERED: Dextrose Gel 15 GM/37.5 ML TUBE PO PRN ×2 (09:39)
[2019-12-25] MEDS ORDERED: *HR* Phytonadione 10 MG/ML AMPUL SQ ONE (10:37)
[2019-12-25] MEDS ORDERED: Isovue-370 500 ML BOTTLE IVP ONE (10:49)
[2019-12-25] MEDS ORDERED: Perflutren Lipid Microsphere 1.3 ML in 0.9 % Sodium Chloride 8.7 ML IVP ONE (11:27)
[2019-12-25] MEDS: Insulin LISPRO 300 UNITS/3 ML VIAL SQ SCH ×2 (12:09→18:22)
[2019-12-25 13:32] LABS: Adenovirus Not Detected (Not Detect); Bordetella Pertussis Not Detected (Not Detect); Chlamydophila pneumoniae Not Detected (Not Detect); Coronavirus 229E Not Detected (Not Detect); Coronavirus HKU1 Not Detected (Not Detect); Coronavirus NL63 Not Detected (Not Detect); Coronavirus OC43 Not Detected (Not Detect); Human Metapneumovirus Not Detected (Not Detect); Human Rhinovirus/Enterovirus Not Detected (Not Detect); Influenza A Subtype 2009 H1 Not Detected (Not Detect); Influenza B Not Detected (Not Detect); Mycoplasma pneumoniae Not Detected (Not Detect); Parainfluenza Virus 1 Not Detected (Not Detect); Parainfluenza Virus 2 Not Detected (Not Detect); Parainfluenza Virus 3 Not Detected (Not Detect); Parainfluenza Virus 4 Not Detected (Not Detect); Respiratory Syncytial Virus Not Detected (Not Detect)
[2019-12-25] MEDS ORDERED: Vancomycin Oral Soln 125 MG/2.5 ML UDC PO SCH (14:00)
[2019-12-25 15:06] LABS: INR 3.5; Prothrombin Time 39.3 Seconds (9.4-12.1)
[2019-12-25] MEDS ORDERED: *HR* Heparin 5,000 UNIT/ML VIAL ONE (15:40)
[2019-12-25] MEDS: MetroNIDAZOLE 500 MG/100 ML 500 MG/100 ML BAG IVPB SCH (16:12)
[2019-12-25] MEDS: Piperacillin/Tazobactam 3.375 GM in 0.9 % Sodium Chloride Mini Bag 100 ML IVPB SCH (18:22)
[2019-12-25] MEDS: Vancomycin Oral Soln 125 MG/2.5 ML UDC PO SCH ×2 (18:39→21:22)
[2019-12-26] MEDS: MetroNIDAZOLE 500 MG/100 ML 500 MG/100 ML BAG IVPB SCH ×4 (00:40→23:06)
[2019-12-26] MEDS: Insulin LISPRO 300 UNITS/3 ML VIAL SQ SCH ×5 (00:41→23:08)
[2019-12-26] MEDS: 0.9 % Sodium Chloride 1,000 ML IVC SCH (04:13)
[2019-12-26 04:51] LABS: Basophils % 0.2 %; Eosinophils # 0.2 K/mcL (0.0-0.6); Eosinophils % 0.7 %; Hematocrit 31.7 % (37.5-50.1); Hemoglobin 9.4 g/dL (12.9-16.9); Immature Granulocytes % 0.7 % (0-4); Lymphocytes # 0.4 K/mcL (0.6-4.6); Lymphocytes % 1.6 %; Mean Corpuscular HGB Conc 29.7 g/dL (31.6-35.5); Mean Corpuscular Hemoglobin 30.2 pg (28.0-33.3); Mean Corpuscular Volume 101.9 fL (83.0-100.0); Mean Platelet Volume 9.7 fL (9.4-12.4); Monocytes # 1.1 K/mcL (0.0-1.3); Monocytes % 4.3 %; Neutrophils # 22.7 K/mcL (1.6-8.9); Platelet Count 281 K/mcL (140-400); Red Blood Count 3.11 M/mcL (4.19-5.50); Red Cell Distribution Width 17.2 % (11.5-14.5); Segmented Neutrophils % 92.5 %; White Blood Count 24.5 K/mcL (4.3-11.1)
[2019-12-26 05:02] LABS: Basophils # 0.1 K/mcL (0.0-0.2)
[2019-12-26 05:24] LABS: Albumin 2.7 g/dL (3.5-5.7); Albumin/Globulin Ratio 0.9 (1.1-2.2); Bilirubin,Total 0.5 mg/dL (0.3-1.0); Calcium 8.6 mg/dL (8.6-10.3); Globulin 3.1 g/dL (2.4-3.5); Magnesium 2.1 mg/dL (1.6-2.6); Potassium 4.5 mEq/L (3.5-5.1); Total Protein 5.8 g/dL (6.4-8.9)
[2019-12-26 05:29] LABS: Platelet Estimate Normal (Normal)
[2019-12-26] MEDS: Piperacillin/Tazobactam 3.375 GM in 0.9 % Sodium Chloride Mini Bag 100 ML IVPB SCH (05:38)
[2019-12-26] MEDS: Norepinephrine 4 MG in 0.9 % Sodium Chloride 250 ML IVC SCH ×2 (06:40→17:37)
[2019-12-26] MEDS ORDERED: *HR* Heparin 5,000 UNIT/ML VIAL HE PRN (07:27)
[2019-12-26] MEDS ORDERED: Calcium Gluconate 1gm/50mL 1 GM/50 ML BAG IVPB PRN ×2 (07:27)
[2019-12-26] MEDS: Vancomycin Oral Soln 125 MG/2.5 ML UDC PO SCH ×4 (09:36→20:07)
[2019-12-26] MEDS: Albumin 25% 25gram/100mL 25 GM/100 ML IV.SOLN IVPB SCH ×3 (09:40→23:05)
[2019-12-26] MEDS: Calcium Chloride 4,000 MG in 0.9 % Sodium Chloride 1,000 ML CRRT SCH (09:53)
[2019-12-26] MEDS: PrismaSATE BGK 4/2.5 5,000 ML CRRT SCH ×6 (09:54→22:18)
[2019-12-26] MEDS: 0.9 % Sodium Chloride 1,000 ML PRIME SCH (09:55)
[2019-12-26 12:38] LABS: VBG Ionized Calcium 1.06 mmol/L (1.15-1.35)
[2019-12-26 12:46] LABS: INR 2.1; Prothrombin Time 23.6 Seconds (9.4-12.1)
[2019-12-26 12:49] LABS: Activated Partial Thrombo Time 35.5 Seconds (26.0-36.0)
[2019-12-26] MEDS: Aspirin Enteric Coated 81 MG Tablet PO SCH (13:08)
[2019-12-26 15:35] LABS: VBG Ionized Calcium 1.06 mmol/L (1.15-1.35)
[2019-12-26 17:41] LABS: VBG Ionized Calcium 1.09 mmol/L (1.15-1.35)
[2019-12-26 20:07] LABS: VBG Ionized Calcium 1.01 mmol/L (1.15-1.35)
[2019-12-26 22:40] LABS: VBG Ionized Calcium 1.05 mmol/L (1.15-1.35)
[2019-12-27] MEDS ORDERED: *HR* Heparin 5,000 UNIT/ML VIAL ONE ×2 (00:22→16:17)
[2019-12-27] MEDS: PrismaSATE BGK 4/2.5 5,000 ML CRRT SCH ×4 (01:35→12:00)
[2019-12-27 01:40] LABS: VBG Ionized Calcium 1.23 mmol/L (1.15-1.35)
[2019-12-27 03:51] LABS: Basophils % 0.2 %; Eosinophils # 0.5 K/mcL (0.0-0.6); Eosinophils % 2.2 %; Hematocrit 34.4 % (37.5-50.1); Hemoglobin 10.1 g/dL (12.9-16.9); Immature Granulocytes % 0.9 % (0-4); Lymphocytes # 0.4 K/mcL (0.6-4.6); Mean Corpuscular HGB Conc 29.4 g/dL (31.6-35.5); Mean Corpuscular Hemoglobin 29.6 pg (28.0-33.3); Mean Corpuscular Volume 100.9 fL (83.0-100.0); Mean Platelet Volume 9.6 fL (9.4-12.4); Monocytes # 0.9 K/mcL (0.0-1.3); Monocytes % 4.2 %; Neutrophils # 18.8 K/mcL (1.6-8.9); Platelet Count 297 K/mcL (140-400); Red Blood Count 3.41 M/mcL (4.19-5.50); Red Cell Distribution Width 17.2 % (11.5-14.5); Segmented Neutrophils % 90.5 %; White Blood Count 20.8 K/mcL (4.3-11.1)
[2019-12-27 03:56] LABS: VBG Ionized Calcium 1.07 mmol/L (1.15-1.35)
[2019-12-27 04:14] LABS: Albumin 3.5 g/dL (3.5-5.7); Albumin/Globulin Ratio 1.2 (1.1-2.2); Bilirubin,Direct 0.3 mg/dL (0.0-0.2); Bilirubin,Indirect 0.4 mg/dL (0.0-1.0); Bilirubin,Total 0.7 mg/dL (0.3-1.0); Calcium 8.9 mg/dL (8.6-10.3); Total Protein 6.5 g/dL (6.4-8.9)
[2019-12-27] MEDS: Norepinephrine 4 MG in 0.9 % Sodium Chloride 250 ML IVC SCH ×2 (05:00→20:14)
[2019-12-27] MEDS: Calcium Chloride 4,000 MG in 0.9 % Sodium Chloride 1,000 ML CRRT SCH ×2 (05:10→23:29)
[2019-12-27] MEDS: Insulin LISPRO 300 UNITS/3 ML VIAL SQ SCH ×3 (06:23→16:37)
[2019-12-27 06:27] LABS: VBG Ionized Calcium 1.08 mmol/L (1.15-1.35)
[2019-12-27] MEDS: Albumin 25% 25gram/100mL 25 GM/100 ML IV.SOLN IVPB SCH ×3 (07:52→23:27)
[2019-12-27] MEDS: MetroNIDAZOLE 500 MG/100 ML 500 MG/100 ML BAG IVPB SCH ×3 (07:52→23:28)
[2019-12-27] MEDS: Aspirin Enteric Coated 81 MG Tablet PO SCH (07:55)
[2019-12-27] MEDS: Vancomycin Oral Soln 125 MG/2.5 ML UDC PO SCH ×4 (07:57→21:34)
[2019-12-27 08:25] LABS: VBG Ionized Calcium 1.12 mmol/L (1.15-1.35)
[2019-12-27 14:30] LABS: VBG Ionized Calcium 1.12 mmol/L (1.15-1.35)
[2019-12-27] MEDS: 0.9 % Sodium Chloride 1,000 ML PRIME SCH (16:46)
[2019-12-28] MEDS: Insulin LISPRO 300 UNITS/3 ML VIAL SQ SCH ×5 (00:19→23:21)
[2019-12-28 04:47] LABS: Hemoglobin 9.3 g/dL (12.9-16.9); Platelet Count 267 K/mcL (140-400)
[2019-12-28 04:49] LABS: Basophils # 0.1 K/mcL (0.0-0.2); Basophils % 0.7 %; Eosinophils # 0.5 K/mcL (0.0-0.6); Eosinophils % 4.3 %; Hematocrit 32.1 % (37.5-50.1); Immature Granulocytes % 0.7 % (0-4); Lymphocytes # 0.4 K/mcL (0.6-4.6); Lymphocytes % 3.6 %; Mean Corpuscular Hemoglobin 29.8 pg (28.0-33.3); Mean Corpuscular Volume 102.9 fL (83.0-100.0); Monocytes # 0.8 K/mcL (0.0-1.3); Monocytes % 6.9 %; Red Blood Count 3.12 M/mcL (4.19-5.50); Red Cell Distribution Width 17.4 % (11.5-14.5); Segmented Neutrophils % 83.8 %; White Blood Count 11.5 K/mcL (4.3-11.1)
[2019-12-28 04:53] LABS: Neutrophils # 9.6 K/mcL (1.6-8.9)
[2019-12-28 05:15] LABS: Hypochromasia Present (Not Present); Platelet Estimate Normal (Normal)
[2019-12-28 06:02] LABS: Calcium 9.7 mg/dL (8.6-10.3); Potassium 3.7 mEq/L (3.5-5.1)
[2019-12-28] MEDS: MetroNIDAZOLE 500 MG/100 ML 500 MG/100 ML BAG IVPB SCH ×3 (08:17→23:21)
[2019-12-28] MEDS: Albumin 25% 25gram/100mL 25 GM/100 ML IV.SOLN IVPB SCH (08:22)
[2019-12-28] MEDS: Aspirin Enteric Coated 81 MG Tablet PO SCH (08:26)
[2019-12-28] MEDS: Vancomycin Oral Soln 125 MG/2.5 ML UDC PO SCH ×4 (08:26→20:13)
[2019-12-28] MEDS ORDERED: Isovue-370 500 ML BOTTLE IVP ONE (10:35)
[2019-12-28] MEDS ORDERED: Isovue-370 500 ML BOTTLE PO ONE (11:35)
[2019-12-28 11:38] LABS: INR 1.8; Prothrombin Time 19.9 Seconds (9.4-12.1)
[2019-12-28] MEDS: Norepinephrine 4 MG in 0.9 % Sodium Chloride 250 ML IVC SCH (11:41)
[2019-12-28 11:43] LABS: Hematocrit 32.5 % (37.5-50.1); Hemoglobin 9.4 g/dL (12.9-16.9)
[2019-12-28 17:11] LABS: Hematocrit 34.3 % (37.5-50.1); Hemoglobin 9.7 g/dL (12.9-16.9)
[2019-12-28] MEDS ORDERED: Melatonin 3 MG TABLET PO SCH (21:00)
[2019-12-28] MEDS ORDERED: OLANZapine 10 MG VIAL IM PRN (21:00)
[2019-12-28] MEDS ORDERED: QUEtiapine Fumarate 25 MG TABLET PO SCH (21:00)
[2019-12-28 23:26] LABS: Hematocrit 33.1 % (37.5-50.1); Hemoglobin 9.6 g/dL (12.9-16.9)
[2019-12-29 03:46] LABS: Immature Granulocytes % 1.1 % (0-4)
[2019-12-29 03:54] LABS: Basophils # 0.1 K/mcL (0.0-0.2); Basophils % 1.1 %; Eosinophils # 0.4 K/mcL (0.0-0.6); Eosinophils % 5.7 %; Hematocrit 31.9 % (37.5-50.1); Hemoglobin 9.3 g/dL (12.9-16.9); Lymphocytes # 0.5 K/mcL (0.6-4.6); Lymphocytes % 6.6 %; Mean Corpuscular HGB Conc 29.2 g/dL (31.6-35.5); Mean Corpuscular Hemoglobin 30.2 pg (28.0-33.3); Mean Corpuscular Volume 103.6 fL (83.0-100.0); Mean Platelet Volume 9.9 fL (9.4-12.4); Monocytes # 0.7 K/mcL (0.0-1.3); Monocytes % 8.9 %; Neutrophils # 5.8 K/mcL (1.6-8.9); Platelet Count 244 K/mcL (140-400); Red Blood Count 3.08 M/mcL (4.19-5.50); Red Cell Distribution Width 17.5 % (11.5-14.5); Segmented Neutrophils % 76.6 %; White Blood Count 7.6 K/mcL (4.3-11.1)
[2019-12-29 03:56] LABS: INR 1.8
[2019-12-29 04:01] LABS: Calcium 9.3 mg/dL (8.6-10.3); Potassium 3.5 mEq/L (3.5-5.1)
[2019-12-29 04:20] LABS: Anisocytosis 1+ (Not Present); Macrocytosis Present (Not Present); Platelet Estimate Normal (Normal)
[2019-12-29] MEDS: Insulin LISPRO 300 UNITS/3 ML VIAL SQ SCH ×4 (05:55→23:54)
[2019-12-29] MEDS: Calcium Chloride 4,000 MG in 0.9 % Sodium Chloride 1,000 ML CRRT SCH (07:28)
[2019-12-29] MEDS: MetroNIDAZOLE 500 MG/100 ML 500 MG/100 ML BAG IVPB SCH ×3 (07:31→23:54)
[2019-12-29] MEDS: PrismaSATE BGK 4/2.5 5,000 ML CRRT SCH ×2 (07:36)
[2019-12-29] MEDS: Vancomycin Oral Soln 125 MG/2.5 ML UDC PO SCH ×4 (08:05→20:16)
[2019-12-29] MEDS: Pantoprazole 40 MG VIAL IVP SCH (08:06)
[2019-12-29] MEDS: Aspirin Enteric Coated 81 MG Tablet PO SCH (08:07)
[2019-12-29] MEDS ORDERED: 0.9 % Sodium Chloride 250 ML IVC PRN ×2 (08:28→08:35)
[2019-12-29] MEDS ORDERED: 0.9 % Sodium Chloride 1,000 ML PRIME SCH (08:30)
[2019-12-29] MEDS ORDERED: *HR* Heparin 10,000 UNIT/10 ML VIAL IV PRN (08:35)
[2019-12-29] MEDS: Norepinephrine 4 MG in 0.9 % Sodium Chloride 250 ML IVC SCH (11:44)
[2019-12-29] MEDS ORDERED: QUEtiapine Fumarate 25 MG TABLET PO SCH (21:00)
[2019-12-30 04:54] LABS: Hemoglobin 10.5 g/dL (12.9-16.9)
[2019-12-30 04:56] LABS: Basophils # 0.1 K/mcL (0.0-0.2); Basophils % 1.2 %; Eosinophils # 0.6 K/mcL (0.0-0.6); Eosinophils % 6.4 %; Hematocrit 35.1 % (37.5-50.1); Immature Granulocytes % 2.1 % (0-4); Lymphocytes # 0.6 K/mcL (0.6-4.6); Lymphocytes % 6.8 %; Mean Corpuscular HGB Conc 29.9 g/dL (31.6-35.5); Mean Corpuscular Hemoglobin 30.3 pg (28.0-33.3); Mean Corpuscular Volume 101.4 fL (83.0-100.0); Mean Platelet Volume 9.6 fL (9.4-12.4); Monocytes # 0.7 K/mcL (0.0-1.3); Monocytes % 8.2 %; Platelet Count 259 K/mcL (140-400); Red Blood Count 3.46 M/mcL (4.19-5.50); Red Cell Distribution Width 17.9 % (11.5-14.5); Segmented Neutrophils % 75.3 %; White Blood Count 8.7 K/mcL (4.3-11.1)
[2019-12-30 05:14] LABS: Potassium 3.4 mEq/L (3.5-5.1)
[2019-12-30 05:22] LABS: Neutrophils # 6.6 K/mcL (1.6-8.9)
[2019-12-30] MEDS: Insulin LISPRO 300 UNITS/3 ML VIAL SQ SCH ×4 (05:33→20:53)
[2019-12-30] MEDS: PrismaSATE BGK 4/2.5 5,000 ML CRRT SCH ×2 (05:51)
[2019-12-30] MEDS: Calcium Chloride 4,000 MG in 0.9 % Sodium Chloride 1,000 ML CRRT SCH (05:51)
[2019-12-30 06:13] LABS: Anisocytosis 1+ (Not Present); Platelet Estimate Normal (Normal)
[2019-12-30] MEDS: MetroNIDAZOLE 500 MG/100 ML 500 MG/100 ML BAG IVPB SCH ×2 (07:09→15:47)
[2019-12-30] MEDS: Pantoprazole 40 MG VIAL IVP SCH (07:42)
[2019-12-30] MEDS: Vancomycin Oral Soln 125 MG/2.5 ML UDC PO SCH ×4 (07:42→20:49)
[2019-12-30] MEDS: Aspirin Enteric Coated 81 MG Tablet PO SCH (07:42)
[2019-12-30] MEDS: Norepinephrine 4 MG in 0.9 % Sodium Chloride 250 ML IVC SCH ×2 (09:23→11:06)
[2019-12-30] MEDS ORDERED: *HR* Dextrose 50 % in Water (Syg) 50 ML SYRINGE IVP PRN (09:37)
[2019-12-30] MEDS ORDERED: D5% in Water 1,000 ML IVC PRN (09:37)
[2019-12-30] MEDS ORDERED: 0.9 % Sodium Chloride 1,000 ML PRIME SCH ×2 (09:37)
[2019-12-30] MEDS ORDERED: Naloxone 0.4 MG/ML INJ IVP PRN (09:37)
[2019-12-30] MEDS ORDERED: Calcium Gluconate 1gm/50mL 1 GM/50 ML BAG IVPB PRN (09:37)
[2019-12-30] MEDS ORDERED: OLANZapine 10 MG VIAL IM PRN (09:37)
[2019-12-30] MEDS ORDERED: PrismaSATE BGK 4/2.5 5,000 ML CRRT SCH ×2 (09:37)
[2019-12-30] MEDS ORDERED: Acetaminophen 325 MG TABLET PO PRN (09:37)
[2019-12-30] MEDS ORDERED: Dextrose Gel 15 GM/37.5 ML TUBE PO PRN ×2 (09:37)
[2019-12-30] MEDS ORDERED: *HR* Heparin 5,000 UNIT/ML VIAL HE PRN (09:37)
[2019-12-30] MEDS ORDERED: Calcium Chloride 4,000 MG in 0.9 % Sodium Chloride 1,000 ML CRRT SCH (09:37)
[2019-12-30] MEDS ORDERED: *HR* Heparin 10,000 UNIT/10 ML VIAL IV PRN (09:37)
[2019-12-30] MEDS ORDERED: Ondansetron 4 MG/2 ML VIAL IVP PRN (09:37)
[2019-12-30] MEDS ORDERED: 0.9 % Sodium Chloride 250 ML IVC PRN (09:37)
[2019-12-30] MEDS ORDERED: Insulin LISPRO 300 UNITS/3 ML VIAL SQ SCH (12:00)
[2019-12-30] MEDS: QUEtiapine Fumarate 25 MG TABLET PO SCH (20:49)
[2019-12-31] MEDS: MetroNIDAZOLE 500 MG/100 ML 500 MG/100 ML BAG IVPB SCH ×3 (00:17→16:06)
[2019-12-31] MEDS: Aspirin Enteric Coated 81 MG Tablet PO SCH (08:00)
[2019-12-31] MEDS: Pantoprazole 40 MG VIAL IVP SCH (08:00)
[2019-12-31] MEDS: Insulin LISPRO 300 UNITS/3 ML VIAL SQ SCH ×4 (08:14→21:32)
[2019-12-31 08:26] LABS: Hematocrit 36.7 % (37.5-50.1); Hemoglobin 10.9 g/dL (12.9-16.9); Immature Platelets 1.2 % (1.1-6.1); Mean Corpuscular HGB Conc 29.7 g/dL (31.6-35.5); Mean Corpuscular Hemoglobin 29.7 pg (28.0-33.3); Mean Platelet Volume 9.5 fL (9.4-12.4); Red Blood Count 3.67 M/mcL (4.19-5.50); Red Cell Distribution Width 17.9 % (11.5-14.5); White Blood Count 11.3 K/mcL (4.3-11.1)
[2019-12-31 08:43] LABS: Calcium 9.3 mg/dL (8.6-10.3); Potassium 3.5 mEq/L (3.5-5.1)
[2019-12-31] MEDS: Vancomycin Oral Soln 125 MG/2.5 ML UDC PO SCH ×5 (12:06→21:31)
[2019-12-31] MEDS: QUEtiapine Fumarate 25 MG TABLET PO SCH (21:31)
[2019-12-31 22:34] LABS: Hematocrit 36.4 % (37.5-50.1)
[2020-01-01] MEDS: MetroNIDAZOLE 500 MG/100 ML 500 MG/100 ML BAG IVPB SCH ×2 (00:37→07:22)
[2020-01-01 06:07] LABS: Basophils # 0.1 K/mcL (0.0-0.2); Basophils % 1.1 %; Eosinophils # 0.6 K/mcL (0.0-0.6); Eosinophils % 6.2 %; Hematocrit 35.2 % (37.5-50.1); Hemoglobin 10.6 g/dL (12.9-16.9); Immature Granulocytes % 3.5 % (0-4); Lymphocytes # 0.8 K/mcL (0.6-4.6); Mean Corpuscular HGB Conc 30.1 g/dL (31.6-35.5); Mean Corpuscular Hemoglobin 29.9 pg (28.0-33.3); Mean Corpuscular Volume 99.4 fL (83.0-100.0); Mean Platelet Volume 9.4 fL (9.4-12.4); Monocytes # 0.9 K/mcL (0.0-1.3); Monocytes % 9.2 %; Neutrophils # 6.8 K/mcL (1.6-8.9); Platelet Count 320 K/mcL (140-400); Red Blood Count 3.54 M/mcL (4.19-5.50); Red Cell Distribution Width 18.4 % (11.5-14.5); White Blood Count 9.4 K/mcL (4.3-11.1)
[2020-01-01 06:11] LABS: Calcium 9.1 mg/dL (8.6-10.3); Magnesium 2.2 mg/dL (1.6-2.6); Phosphorous 3.1 mg/dL (2.7-4.5); Potassium 3.4 mEq/L (3.5-5.1)
[2020-01-01] MEDS: Pantoprazole 40 MG VIAL IVP SCH (07:20)
[2020-01-01] MEDS: Aspirin Enteric Coated 81 MG Tablet PO SCH (07:20)
[2020-01-01] MEDS: Vancomycin Oral Soln 125 MG/2.5 ML UDC PO SCH ×4 (07:22→21:34)
[2020-01-01] MEDS ORDERED: 0.9 % Sodium Chloride 250 ML IVC PRN ×2 (07:34→23:35)
[2020-01-01] MEDS ORDERED: *HR* Heparin 10,000 UNIT/10 ML VIAL IV PRN ×2 (07:34→23:35)
[2020-01-01] MEDS: Insulin LISPRO 300 UNITS/3 ML VIAL SQ SCH ×3 (07:36→17:05)
[2020-01-01] MEDS ORDERED: 0.9 % Sodium Chloride 1,000 ML PRIME SCH ×2 (07:45→23:35)
[2020-01-01] MEDS: QUEtiapine Fumarate 25 MG TABLET PO SCH (20:46)
[2020-01-01] MEDS ORDERED: OLANZapine 10 MG VIAL IM PRN (23:35)
[2020-01-01] MEDS ORDERED: Dextrose Gel 15 GM/37.5 ML TUBE PO PRN ×2 (23:35)
[2020-01-01] MEDS ORDERED: D5% in Water 1,000 ML IVC PRN (23:35)
[2020-01-01] MEDS ORDERED: *HR* Heparin 5,000 UNIT/ML VIAL HE PRN (23:35)
[2020-01-01] MEDS ORDERED: Acetaminophen 325 MG TABLET PO PRN (23:35)
[2020-01-01] MEDS ORDERED: Naloxone 0.4 MG/ML INJ IVP PRN (23:35)
[2020-01-01] MEDS ORDERED: Ondansetron 4 MG/2 ML VIAL IVP PRN (23:35)
[2020-01-01] MEDS ORDERED: *HR* Dextrose 50 % in Water (Syg) 50 ML SYRINGE IVP PRN (23:35)
[2020-01-02] MEDS: Insulin LISPRO 300 UNITS/3 ML VIAL SQ SCH ×4 (00:41→17:27)
[2020-01-02] MEDS ORDERED: Pantoprazole 40 MG VIAL IVP SCH (06:30)
[2020-01-02 06:55] LABS: Hematocrit 36.5 % (37.5-50.1); Hemoglobin 10.7 g/dL (12.9-16.9); Mean Corpuscular HGB Conc 29.3 g/dL (31.6-35.5); Mean Corpuscular Hemoglobin 29.1 pg (28.0-33.3); Mean Corpuscular Volume 99.2 fL (83.0-100.0); Mean Platelet Volume 9.2 fL (9.4-12.4); Platelet Count 295 K/mcL (140-400); Red Blood Count 3.68 M/mcL (4.19-5.50); Red Cell Distribution Width 18.6 % (11.5-14.5); White Blood Count 8.8 K/mcL (4.3-11.1)
[2020-01-02 07:09] LABS: Calcium 8.9 mg/dL (8.6-10.3); Potassium 3.8 mEq/L (3.5-5.1)
[2020-01-02] MEDS: Aspirin Enteric Coated 81 MG Tablet PO SCH (09:28)
[2020-01-02] MEDS: Vancomycin Oral Soln 125 MG/2.5 ML UDC PO SCH ×4 (09:29→20:18)
[2020-01-02] MEDS: Norepinephrine 4 MG in 0.9 % Sodium Chloride 250 ML IVC SCH (13:08)
[2020-01-02] MEDS ORDERED: Insulin LISPRO 300 UNITS/3 ML VIAL SQ SCH (21:00)
[2020-01-02] MEDS ORDERED: QUEtiapine Fumarate 25 MG TABLET PO SCH (21:00)
[2020-01-03] MEDS ORDERED: 0.9 % Sodium Chloride 1,000 ML ONE (07:30)
[2020-01-03] MEDS: Aspirin Enteric Coated 81 MG Tablet PO SCH (08:48)
[2020-01-03 08:49] LABS: Calcium 9.2 mg/dL (8.6-10.3); Magnesium 2.2 mg/dL (1.6-2.6); Potassium 4.3 mEq/L (3.5-5.1)
[2020-01-03] MEDS: Vancomycin Oral Soln 125 MG/2.5 ML UDC PO SCH ×2 (08:49→14:46)
[2020-01-03] MEDS: Insulin LISPRO 300 UNITS/3 ML VIAL SQ SCH ×2 (08:49→12:44)
[2020-01-03 08:52] LABS: Folate 21.1 ng/mL (3.0-16.0)
[2020-01-03] MEDS ORDERED: *HR* Heparin 10,000 UNIT/10 ML VIAL IV PRN (09:33)
[2020-01-03] MEDS ORDERED: 0.9 % Sodium Chloride 250 ML IVC PRN (09:33)
[2020-01-03 14:52] VITALS: BP 103/54
== END 2020-01-03 16:23 | DRG 871 ==
LOC: SUATTDRO → CDU 06:29 → EMEROOARM 06:29 → ICNU 09:15 → 2NNU 12-30 14:57 → 2ANU 01-01 22:26 → 3ANU 01-02 02:00 → 2ANU 01-03 14:27
PROVIDERS: ADMIT Pharmacist; ATTEND Pharmacist

== ENCOUNTER 2020-02-01 00:16 | Inpatient (IN) ==
[2020-02-01] MEDS ORDERED: Piperacillin/Tazobactam 3.375 GM in Water for inj. (sterile) 20 ML IVP ONE (00:26)
[2020-02-01] MEDS ORDERED: 0.9 % Sodium Chloride 500 ML IVC ONE (00:29)
[2020-02-01] MEDS ORDERED: Aspirin 325 MG TABLET PO ONE (00:31)
[2020-02-01] MEDS ORDERED: 0.9 % Sodium Chloride 1,000 ML ONE (01:17)
[2020-02-01 01:18] LABS: Basophils % 0.4 %; Eosinophils # 0.2 K/mcL (0.0-0.6); Eosinophils % 2.8 %; Hematocrit 34.8 % (37.5-50.1); Hemoglobin 10.2 g/dL (12.9-16.9); Immature Granulocytes % 0.3 % (0-4); Lymphocytes # 0.4 K/mcL (0.6-4.6); Lymphocytes % 5.7 %; Mean Corpuscular HGB Conc 29.3 g/dL (31.6-35.5); Mean Corpuscular Hemoglobin 29.2 pg (28.0-33.3); Mean Corpuscular Volume 99.7 fL (83.0-100.0); Mean Platelet Volume 9.5 fL (9.4-12.4); Monocytes # 0.6 K/mcL (0.0-1.3); Monocytes % 8.1 %; Neutrophils # 6.4 K/mcL (1.6-8.9); Platelet Count 257 K/mcL (140-400); Red Blood Count 3.49 M/mcL (4.19-5.50); Red Cell Distribution Width 18.2 % (11.5-14.5); Segmented Neutrophils % 82.7 %; White Blood Count 7.8 K/mcL (4.3-11.1)
[2020-02-01] MEDS ORDERED: EPINEPHrine 1 MG in D5% in Water 250 ML IVC SCH (01:20)
[2020-02-01 01:22] LABS: VBG HCO3 28 mEq/L (21-27); VBG PCO2 48 mmHg (41-51); VBG PH 7.38 pH Units (7.32-7.42); VBG PO2 261 mmHg (25-50)
[2020-02-01 01:25] LABS: Activated Partial Thrombo Time 40.8 Seconds (26.0-36.0)
[2020-02-01 01:26] LABS: INR 3.7
[2020-02-01 01:43] LABS: Albumin 3.4 g/dL (3.5-5.7); Bilirubin,Direct 0.2 mg/dL (0.0-0.2); Bilirubin,Indirect 0.4 mg/dL (0.0-1.0); Bilirubin,Total 0.6 mg/dL (0.3-1.0); Calcium 8.7 mg/dL (8.6-10.3); Globulin 3.3 g/dL (2.4-3.5); Magnesium 1.9 mg/dL (1.6-2.6); Phosphorous 2.8 mg/dL (2.7-4.5); Potassium 2.6 mEq/L (3.5-5.1); Total Protein 6.7 g/dL (6.4-8.9); Troponin I 0.08 ng/mL (< 0.04)
[2020-02-01 01:47] LABS: ABG Base Excess -2 mEq/L (-2 to 3); ABG HCO3 25 mEq/L (21-27); ABG Oxygen Saturation 99 % (95-98); ABG PCO2 48 mmHg (35-45); ABG PH 7.32 pH Units (7.32-7.45); ABG PO2 159 mmHg (85-104); ABG TCO2 26 mEq/L (20-26); Blood Gas Modality ASSIST CONTROL; Blood Gas VT 450 cc
[2020-02-01] MEDS ORDERED: Amiodarone Premix 360 MG/200 ML BAG IVC ONE (01:57)
[2020-02-01] MEDS: FentaNYL (PF) 1,000 MCG in 0.9 % Sodium Chloride 80 ML IVC SCH ×3 (02:54→22:00)
[2020-02-01] MEDS: DilTIAZem 50 MG in 0.9 % Sodium Chloride 40 ML IVC SCH (02:56)
[2020-02-01] MEDS: Norepinephrine 4 MG in 0.9 % Sodium Chloride 250 ML IVC SCH ×3 (03:28→19:15)
[2020-02-01] MEDS ORDERED: Naloxone 0.4 MG/ML INJ IVP PRN (04:04)
[2020-02-01] MEDS ORDERED: Furosemide 40 MG/4 ML VIAL IVP ONE (04:08)
[2020-02-01] MEDS ORDERED: Potassium Chloride 40 MEQ, Lidocaine 1% 2 ML in 0.9 % Sodium Chloride 500 ML IVPB ONE (04:40)
[2020-02-01] MEDS ORDERED: Amiodarone 150 MG in D5% in Water 100 ML IVPB ONE (04:52)
[2020-02-01] MEDS ORDERED: Perflutren Lipid Microsphere 1.3 ML in 0.9 % Sodium Chloride 8.7 ML IVP ONE (07:43)
[2020-02-01] MEDS ORDERED: Piperacillin/Tazobactam 3.375 GM in 0.9 % Sodium Chloride Mini Bag 100 ML IVPB SCH (08:00)
[2020-02-01] MEDS: Amiodarone Premix 360 MG/200 ML BAG IVC SCH ×2 (08:35→19:15)
[2020-02-01] MEDS: Pantoprazole 40 MG VIAL IVP SCH (09:11)
[2020-02-01] MEDS ORDERED: *HR* Heparin 5,000 UNIT/ML VIAL IVP PRN ×2 (09:20)
[2020-02-01] MEDS ORDERED: *HR* Heparin 5,000 UNIT/ML VIAL IVP ONE (09:20)
[2020-02-01 09:43] LABS: Red Cell Distribution Width 18.6 % (11.5-14.5)
[2020-02-01 09:44] LABS: Basophils # 0.1 K/mcL (0.0-0.2); Basophils % 0.5 %; Eosinophils # 0.1 K/mcL (0.0-0.6); Hematocrit 41.1 % (37.5-50.1); Hemoglobin 11.8 g/dL (12.9-16.9); Immature Granulocytes % 0.8 % (0-4); Lymphocytes # 0.8 K/mcL (0.6-4.6); Lymphocytes % 6.8 %; Mean Corpuscular HGB Conc 28.7 g/dL (31.6-35.5); Mean Corpuscular Hemoglobin 29.6 pg (28.0-33.3); Mean Platelet Volume 9.4 fL (9.4-12.4); Monocytes # 0.9 K/mcL (0.0-1.3); Monocytes % 7.5 %; Nucleated Red Blood Cells 0.3 /100 WBC (0); Platelet Count 360 K/mcL (140-400); Red Blood Count 3.99 M/mcL (4.19-5.50); Segmented Neutrophils % 83.4 %; White Blood Count 11.7 K/mcL (4.3-11.1)
[2020-02-01 09:49] LABS: Heparin anti-factor XA UFH < 0.04 IU/mL (0.30-0.70); INR 4.2
[2020-02-01 09:50] LABS: Neutrophils # 9.8 K/mcL (1.6-8.9)
[2020-02-01 09:51] LABS: Activated Partial Thrombo Time 41.8 Seconds (26.0-36.0)
[2020-02-01 09:57] LABS: Prothrombin Time 48.1 Seconds (9.4-12.1)
[2020-02-01] MEDS: Vancomycin Oral Soln 125 MG/2.5 ML UDC PO SCH ×4 (09:57→21:06)
[2020-02-01 10:10] LABS: Troponin I 10.39 ng/mL (< 0.04)
[2020-02-01 10:13] LABS: Albumin 3.5 g/dL (3.5-5.7); Albumin/Globulin Ratio 1.2 (1.1-2.2); Bilirubin,Total 0.7 mg/dL (0.3-1.0); Calcium 9.4 mg/dL (8.6-10.3); Potassium 3.7 mEq/L (3.5-5.1); Total Protein 6.5 g/dL (6.4-8.9)
[2020-02-01 10:21] LABS: Hypochromasia Present (Not Present); Macrocytosis Present (Not Present); Platelet Estimate Normal (Normal)
[2020-02-01 10:25] LABS: Thyroid Stimulating Hormone 5.39 mcIU/mL (0.340-5.600)
[2020-02-01] MEDS ORDERED: 0.9 % Sodium Chloride 250 ML ONE (10:38)
[2020-02-01] MEDS ORDERED: *HR* Norepinephrine 4 MG/4 ML VIAL IVC ONE (10:38)
[2020-02-01 12:58] LABS: INR 4.5; Prothrombin Time 51.8 Seconds (9.4-12.1)
[2020-02-01] MEDS ORDERED: CLEAR EYES NATURAL TEARS 15 ML BOTTLE BOTH EYES PRN (14:51)
[2020-02-01 15:19] LABS: INR 4.2
[2020-02-01] MEDS ORDERED: *HR* Amiodarone Premix 360 MG/200 ML BAG IVC ONE (15:50)
[2020-02-01] MEDS ORDERED: *HR* Rocuronium Bromide 50 MG/5 ML VIAL IVC ONE (15:50)
[2020-02-01] MEDS ORDERED: *HR* EPINEPHrine 1 MG/10 ML SYRINGE IVP ONE (15:50)
[2020-02-01] MEDS ORDERED: *HR* Etomidate 20 MG/10 ML AMPUL IVP ONE (15:50)
[2020-02-01] MEDS ORDERED: *HR* Amiodarone 150 MG/3 ML VIAL IVPB ONE (15:50)
[2020-02-01] MEDS: Heparin 25,000 UNIT/250 ML D5W 25,000 UNIT/250 ML IV.SOLN IVC SCH (17:36)
[2020-02-01] MEDS: CLEAR EYES NATURAL TEARS 15 ML BOTTLE BOTH EYES SCH ×2 (17:37→20:32)
[2020-02-01] MEDS: Chlorhexidine Rinse 15 ML MOUTHWASH MM SCH (20:35)
[2020-02-02] MEDS: CLEAR EYES NATURAL TEARS 15 ML BOTTLE BOTH EYES SCH ×6 (00:05→20:14)
[2020-02-02] MEDS: DilTIAZem 50 MG in 0.9 % Sodium Chloride 40 ML IVC SCH (00:05)
[2020-02-02] MEDS: Heparin 25,000 UNIT/250 ML D5W 25,000 UNIT/250 ML IV.SOLN IVC SCH (00:05)
[2020-02-02] MEDS ORDERED: *HR* Midazolam HCl 5 MG/5 ML VIAL IVP ONE (00:17)
[2020-02-02] MEDS: Norepinephrine 4 MG in 0.9 % Sodium Chloride 250 ML IVC SCH ×3 (00:30→19:03)
[2020-02-02] MEDS: FentaNYL (PF) 1,000 MCG in 0.9 % Sodium Chloride 80 ML IVC SCH ×4 (03:00→20:28)
[2020-02-02 03:43] LABS: Basophils # 0.1 K/mcL (0.0-0.2); Basophils % 0.8 %; Eosinophils # 0.1 K/mcL (0.0-0.6); Eosinophils % 0.5 %; Hematocrit 38.3 % (37.5-50.1); Hemoglobin 11.2 g/dL (12.9-16.9); Immature Granulocytes % 0.5 % (0-4); Lymphocytes # 0.8 K/mcL (0.6-4.6); Lymphocytes % 6.4 %; Mean Corpuscular HGB Conc 29.2 g/dL (31.6-35.5); Mean Corpuscular Hemoglobin 28.7 pg (28.0-33.3); Mean Corpuscular Volume 98.2 fL (83.0-100.0); Mean Platelet Volume 9.3 fL (9.4-12.4); Monocytes # 1.2 K/mcL (0.0-1.3); Monocytes % 9.5 %; Neutrophils # 10.4 K/mcL (1.6-8.9); Nucleated Red Blood Cells 0.2 /100 WBC (0); Platelet Count 350 K/mcL (140-400); Red Cell Distribution Width 18.5 % (11.5-14.5); Segmented Neutrophils % 82.3 %; White Blood Count 12.7 K/mcL (4.3-11.1)
[2020-02-02 03:46] LABS: INR 2.4; Prothrombin Time 27.8 Seconds (9.4-12.1)
[2020-02-02 03:58] LABS: VBG Ionized Calcium 1.16 mmol/L (1.15-1.35)
[2020-02-02 04:02] LABS: Albumin 3.3 g/dL (3.5-5.7); Albumin/Globulin Ratio 1.1 (1.1-2.2); Bilirubin,Direct 0.4 mg/dL (0.0-0.2); Bilirubin,Indirect 0.4 mg/dL (0.0-1.0); Bilirubin,Total 0.8 mg/dL (0.3-1.0); Calcium 9.4 mg/dL (8.6-10.3); Globulin 3.1 g/dL (2.4-3.5); Magnesium 2.1 mg/dL (1.6-2.6); Phosphorous 3.3 mg/dL (2.7-4.5); Potassium 3.4 mEq/L (3.5-5.1); Total Protein 6.4 g/dL (6.4-8.9)
[2020-02-02 05:08] LABS: ABG Base Excess -1 mEq/L (-2 to 3); ABG HCO3 23 mEq/L (21-27); ABG Oxygen Saturation 94 % (95-98); ABG PCO2 34 mmHg (35-45); ABG PH 7.43 pH Units (7.32-7.45); ABG PO2 69 mmHg (85-104); ABG TCO2 24 mEq/L (20-26); Blood Gas Modality VC; Blood Gas VT 500 cc
[2020-02-02] MEDS: Amiodarone Premix 360 MG/200 ML BAG IVC SCH (08:11)
[2020-02-02] MEDS: Chlorhexidine Rinse 15 ML MOUTHWASH MM SCH ×2 (08:11→20:15)
[2020-02-02] MEDS: Pantoprazole 40 MG VIAL IVP SCH (08:12)
[2020-02-02] MEDS: Vancomycin Oral Soln 125 MG/2.5 ML UDC PO SCH ×4 (08:13→20:15)
[2020-02-02] MEDS: *HR* LORazepam 2 MG/ML VIAL IVP PRN (17:30)
[2020-02-03] MEDS: CLEAR EYES NATURAL TEARS 15 ML BOTTLE BOTH EYES SCH ×4 (00:04→12:23)
[2020-02-03] MEDS: Norepinephrine 4 MG in 0.9 % Sodium Chloride 250 ML IVC SCH (01:30)
[2020-02-03] MEDS: FentaNYL (PF) 1,000 MCG in 0.9 % Sodium Chloride 80 ML IVC SCH ×3 (04:05→14:48)
[2020-02-03 04:14] LABS: Basophils # 0.1 K/mcL (0.0-0.2); Basophils % 0.5 %; Eosinophils # 0.3 K/mcL (0.0-0.6); Eosinophils % 2.3 %; Hematocrit 38.1 % (37.5-50.1); Hemoglobin 11.3 g/dL (12.9-16.9); Immature Granulocytes % 0.6 % (0-4); Lymphocytes # 0.7 K/mcL (0.6-4.6); Lymphocytes % 4.7 %; Mean Corpuscular HGB Conc 29.7 g/dL (31.6-35.5); Mean Corpuscular Hemoglobin 29.4 pg (28.0-33.3); Mean Platelet Volume 9.2 fL (9.4-12.4); Monocytes # 1.1 K/mcL (0.0-1.3); Monocytes % 7.8 %; Neutrophils # 12.3 K/mcL (1.6-8.9); Platelet Count 355 K/mcL (140-400); Red Blood Count 3.85 M/mcL (4.19-5.50); Red Cell Distribution Width 18.6 % (11.5-14.5); Segmented Neutrophils % 84.1 %; White Blood Count 14.6 K/mcL (4.3-11.1)
[2020-02-03 04:14] LABS: ABG Base Excess -4 mEq/L (-2 to 3); ABG HCO3 22 mEq/L (21-27); ABG Oxygen Saturation 95 % (95-98); ABG PCO2 43 mmHg (35-45); ABG PH 7.31 pH Units (7.32-7.45); ABG PO2 83 mmHg (85-104); ABG TCO2 23 mEq/L (20-26); Blood Gas Modality ASSIST CONTROL; Blood Gas VT 500 cc
[2020-02-03 04:29] LABS: Calcium 9.6 mg/dL (8.6-10.3); Potassium 3.4 mEq/L (3.5-5.1)
[2020-02-03] MEDS: Pantoprazole 40 MG VIAL IVP SCH (09:30)
[2020-02-03] MEDS: Chlorhexidine Rinse 15 ML MOUTHWASH MM SCH (09:30)
[2020-02-03] MEDS: Vancomycin Oral Soln 125 MG/2.5 ML UDC PO SCH ×2 (09:31→14:49)
[2020-02-03] MEDS ORDERED: *HR* Atropine Sulfate 1 MG/10 ML SYRINGE ONE (09:39)
[2020-02-03] MEDS: Heparin 25,000 UNIT/250 ML D5W 25,000 UNIT/250 ML IV.SOLN IVC SCH (10:23)
[2020-02-03 10:28] VITALS: BP 93/66
[2020-02-03] MEDS ORDERED: *HR* LORazepam 2 MG/ML VIAL IVP PRN (11:58)
[2020-02-03] MEDS: *HR* LORazepam 2 MG/ML VIAL IVP PRN (12:00)
== END 2020-02-03 15:51 | disposition expired ==
LOC: EMEROOARM 00:16 → ICNU 03:49
PROVIDERS: ADMIT Internal Medicine; ATTEND Internal Medicine